=== PATIENT | male | born 1960 ===

== ENCOUNTER 2024-07-12 09:48 | Outpatient (AMB) | payer OTHER, SELFPAY ==
--- NOTE | 2024-07-12 10:08 | MHC.PC.OV ---
Vital Signs 07/12/24 10:28 Height 5 ft 8 in Weight 235 lb 6 oz BMI 35.8 BP 130/70 Blood Pressure Location Rt brachial Position Sitting Respiration 16 Pulse 59 Pulse Source Pulse Oximeter Temp 98 F Temp Source Tympanic Pulse Oximetry (%) 96 Oxygen Delivery Method Room Air Intake Visit Reasons: [employer]-DM/BP Intake Note: establish care Allergies No Known Allergies Allergy (Verified 07/12/24 10:15) Medication List - Last Reconciled 07/12/24 by Gaurav Mckeon MD amlodipine 10 mg PO DAILY aspirin (Adult Aspirin Regimen) 81 mg PO DAILY atorvastatin 40 mg PO DAILY empagliflozin (Jardiance) 10 mg PO DAILY losartan 100 mg PO DAILY metformin 1,000 mg PO DAILY metoprolol succinate ER 100 mg PO DAILY Tobacco use date assessed: 07/12/24 Dental Screening Dental Screen Date: 07/12/24 Did you have a dental visit in the last 12 months?: No Did you have a dental problem in the last 6 months where you did not have access to dental care?: No Was dental information given to patient?: Patient has dentist HPI [employer]-DM/BP HPI Details New Patient? ?? Prior PCP:? Candice miles [place] Last office visit/CPE:? > 1yr Acute issue(s):? BP R hip & knee Concern for heart valve problem. ?? PMHx:? HTN, DM, HLD SurgHx:?None FHx:? Mom: DM Dad: Liver Ca, EtOH. Uncle: Heart disease. SocHx:? Quit cigs 30 yrs ago. EtOH Occassional couple beers. No drugs HPI Comments History of Present Illness Details Documentation assistance for Gaurav Mckeon MD, was provided by Jeremias Rubin,? Microwave Radio Technician on 07/12/2024 at 10:54 AM AGNES. I, Dr. Mckeon, have read, observed, and verified documentation. [facility] Social History (Updated 07/12/24 @ 10:24 by Moreno Mcguire) Housing: House Patient Tobacco Use Status: Never used Tobacco e-Cigarette/Vaping Use: Never Used Use of substances other than those prescribed or required for medical reasons: No service: No Current occupational status: employed Current occupation: maintance Current occupational exposures/hazards: Yes Cognitive needs: No Hearing needs: No Vision needs: Yes Questionnaire PHQ-9 Over the last 2 weeks, how often have you been bothered by any of the following problems? 1. Little interest or pleasure in doing things: not at all 2. Feeling down, depressed, or hopeless: not at all 3. Trouble falling or staying asleep, or sleeping too much: not at all 4. Feeling tired or having little energy: not at all 5. Poor appetite or overeating: not at all 6. Feeling bad about yourself - or that you are a failure or have let yourself or your family down: not at all 7. Trouble concentrating on things, such as reading the newspaper or watching television: not at all 8. Moving or speaking so slowly that other people could have noticed. Or the opposite - being so fidgety or restless that you have been moving around a lot more than usual: not at all 9. Thoughts that you would be better off or of hurting yourself in some way: not at all Total score: 0 Depression Screening Interpretation: Negative Depression Screening Done: Yes 48581 - PHQ-9 Billing: Yes Source: Developed by Drs. Nico Sparrow, Kathryn Chavez, Matt Rodriguez and colleagues, with an educational chelsea from [email or web address]. Thrive Questionnaire Date Thrive assessed: 07/12/24 I am a: Patient What is your living situation today?: I have a steady place to live Within the past 12 months, did the food you bought not last and you didn't have the money to get more?: Never true Within the past 12 months, did you worry whether your food would run out before you got money to buy more?: Never true Do you have trouble paying for medicines?: No Do you have trouble getting transportation to medical appointments?: No Do you have trouble paying your heating and electricity bill?: No Do you have trouble taking care of your child, family member or friend?: No Do you have trouble with day-to-day activities such as bathing, preparing meals, shopping, managing finances, etc.?: No Are you currently unemployed and looking for a job?: No Are you interested in more education?: No Please select the resources that you would like help with: None Currently or been in a relationship where the following occur: No concerns reported THRIVE Score: 0 AUDIT C Alcohol Use Questionnaire (AUDIT-C) 1. How often do you have a drink containing alcohol?: Monthly or less 2. How many drinks containing alcohol do you have on a typical day when you are drinking?: 1 or 2 3. How often do you have six or more drinks on one occasion?: Never Total Score: 1 Score Reviewed/Action Taken: Yes RJ-7 AMB Questionnaire RJ-7 Date RJ - 7 assessed: 07/12/24 Feeling nervous, anxious, or on edge: 0 = Not at all Not being able to stop or control worryin = Not at all Worrying too much about different things: 0 = Not at all Trouble relaxin = Not at all Being so restless that it is hard to sit still: 0 = Not at all Becoming easily annoyed or irritable: 0 = Not at all Feeling afraid as if something awful might happen: 0 = Not at all Total RJ-7 score (0-4 normal; 5-9 mild; 10-14 moderate; 15-21 severe): 0 Source: Developed by Drs. Nico Sparrow, Kathryn Chavez, Matt Rodriguez and colleagues, with an educational chelsea from [email or web address]. RJ-7 Assessment Billing RJ-7 Assessment Tool: RJ-7 Assessment 11293 Review of Systems Const Denies chills, Denies fatigue, Denies fever(s), Denies headache(s) and Denies weakness ENT Denies dizziness and Denies headache(s) Card Denies chest pain, Denies lightheadedness, Denies dyspnea and Denies other (Palpitations) Resp Denies cough, Denies dyspnea, Denies wheezing and Denies other ( shortness of breath) Musc Details: R hip pain Knee pain Denies numbness and Denies tingling Neuro Denies dizziness, Denies headache(s), Denies numbness, Denies tingling, Denies paresthesias and Denies weakness Psych Denies anxiety and Denies depression Endo Denies fatigue Aller/Immun Denies wheezing Physical exam (Primary Care) Vital Signs: Last Vital Signs Temp 98 F 07/12/24 10:28 Pulse 59 07/12/24 10:28 Resp 16 07/12/24 10:28 BP 130/70 07/12/24 10:28 Pulse Ox 96 07/12/24 10:28 Oxygen Delivery Method Room Air 07/12/24 10:28 BMI result Body Mass Index 35.8 Tobacco/Smoking Status: Tobacco use Status Tobacco use date assessed 07/12/24 07/12/24 10:30 Patient Tobacco Use Status Never used Tobacco 07/12/24 10:30 e-Cigarette/Vaping Use Never Used 07/12/24 10:30 PHQ-9: PHQ-9 Score PHQ-9: Total score 0 07/12/24 10:37 Depression Screening Interpretation: Negative Thrive Assessment: Date of Thrive Assessment Date Thrive assessed 07/12/24 07/12/24 10:30 Currently or been in a relationship where the following occur: No concerns reported Const General: no acute distress and well developed Nutritional Appearance: well nourished Orientation/consciousness: patient oriented x3 HENMT Head: Yes normocephalic and Yes atraumatic Eyes General: appearance normal, both eyes and all related structures Pupils: Equal, round and reactive pupils present EOM: EOMs intact bilaterally Resp Effort & Inspection: normal respiratory effort Auscultation: clear to auscultation bilaterally Cardio Rate: regular rate Rhythm: regular rhythm Heart sounds: S1 normal heart sound present, S2 normal heart sound present, no gallops, Murmur heart sound present and no rubs Bruits: carotid bruit (L) Neuro General: patient oriented x3 and gait normal Cranial nerves: Yes Equal, round and reactive pupils present Psych Affect: normal affect Assessment and Plan Assessment & Plan (1) Diabetes: Code(s): E11.9 - Type 2 diabetes mellitus without complications Plan: Patient?is?on?Jardiance?and?metformin Check?A1c (2) Hypertension: Code(s): I10 - Essential (primary) hypertension Plan: Blood?pressure?is?controlled Continue?current?medication?regimen Requesting?notes?from?Cardiology (3) Right hip pain: Code(s): M25.551 - Pain in right hip Plan: Right?posterolateral?hip?pain?radiating?down?side?of?leg?into?knee?and?lower Can?use?OTC?medications?such?as?ibuprofen Will?refer?to?physical?therapy (4) Knee pain: Code(s): M25.569 - Pain in unspecified knee Plan: As?above (5) Hyperlipidemia: Code(s): E78.5 - Hyperlipidemia, unspecified Plan: Patient?is?on?atorvastatin Check?labs (6) Heart murmur: Code(s): R01.1 - Cardiac murmur, unspecified Plan: 02/01?systolic?murmur?heard?over?aortic?and?mitral?regions Patient?has?known?valvular?problem?but?unclear?what?this?is?yet.??I?have?already?ask?patient?to?have?records?forwarded?from?his?manager mobile. His?daughter?is?checking?to?see?who?this?was?and?get?records (7) Left carotid bruit: Code(s): R09.89 - Other specified symptoms and signs involving the circulatory and respiratory systems Plan: Left?carotid?bruit Patient?has?known?valvular?issue?and?systolic?murmur?so?this?may?be?transmitted?sound?but?I?am?not?hearing?it?on?the?right?side?also Checking?carotid?ultrasound (8) Laboratory exam ordered as part of routine general medical examination: Code(s): Z00.00 - Encounter for general adult medical examination without abnormal findings Plan: Check?labs Orders: Orders Comprehensive [place]. Panel Fast Today Z00.00 - Encounter for general adult medical examination without abnormal findings Lipid Panel Today Z00.00 - Encounter for general adult medical examination without abnormal findings UA and rflx microscopic Today Z00.00 - Encounter for general adult medical examination without abnormal findings US carotid duplex BI Today R09.89 - Other specified symptoms and signs involving the circulatory and respiratory systems PT Evaluation and Treatment Today M25.551 - Pain in right hip, M25.569 - Pain in unspecified knee Microalbumin, Random (w Creat) Today I10 - Essential (primary) hypertension Prostate Specific Antigen Scr Today Z12.5 - Encounter for screening for malignant neoplasm of prostate TSH reflex Free T4 Today Z00.00 - Encounter for general adult medical examination without abnormal findings Complete Blood Count Auto Diff Today Z00.00 - Encounter for general adult medical examination without abnormal findings Coding Level of Care Code New Pt Level 3 (43308) Diagnoses Diabetes E11.9 Hypertension I10 Right hip pain M25.551 Knee pain M25.569 Hyperlipidemia E78.5 Heart murmur R01.1 Left carotid bruit R09.89 Laboratory exam ordered as part of routine general medical examination Z00.00 Additional Codes RJ-7 Assessment Billing - RJ-7 Assessment Tool: RJ-7 Assessment 56852 ([id number])
[2024-07-12 10:28] VITALS: BP 130/70; PULSE 59; RESP 16; TEMP 36.6; O2SAT 96; BMI 35.8
== END 2024-07-12 11:16 | disposition home or self-care (01) ==
PROVIDERS: PCP Family Medicine; Visit Provider Family Medicine
DX: E11.9 Type 2 diabetes mellitus without complications (principal); I10 Essential (primary) hypertension; M25.551 Pain in right hip; M25.561 Pain in right knee; E78.5 Hyperlipidemia, unspecified; R01.1 Cardiac murmur, unspecified; R09.89 Other specified symptoms and signs involving the circulatory and respiratory systems
CPT/HCPCS: 99203

== ENCOUNTER 2024-07-17 14:57 | Outpatient (REF) | payer OTHER, SELFPAY ==
--- NOTE | ~2024-07-17 | US_ITS ---
EXAMINATION: US EXTRACRANIAL CAROTID DUPLEX, BILATERAL CLINICAL INFORMATION: hypertension, hyperlipidemia COMPARISON: None available. TECHNIQUE: Real-time ultrasound and Doppler techniques (integrating B-mode 2-D vascular images, Doppler spectral analysis and color-flow Doppler imaging) were utilized to interrogate the extracranial carotid arteries, the vertebral arteries and proximal subclavian arteries bilaterally. The degree of stenosis is determined by criteria similar to NASCET. FINDINGS: Right Side: 1. There is mild atherosclerotic plaque seen in the bifurcation/proximal ICA region. 2. The common carotid artery PSV proximally is 71 cm/s and distally 46 cm/s. 3. The proximal internal carotid artery velocities are 51 cm/s systolic and 14 cm/s diastolic. 4. The proximal external carotid artery PSV is 97 cm/s. 5. The vertebral artery shows antegrade flow. 6. The subclavian artery waveforms are normal. Left Side: 1. There is mild atherosclerotic plaque seen in the bifurcation/proximal ICA region. 2. The common carotid artery PSV proximally is 86 cm/s and distally 58 cm/s. 3. The proximal internal carotid artery velocities are 66 cm/s systolic and 26 cm/s diastolic. 4. The proximal external carotid artery PSV is 107 cm/s. 5. The vertebral artery shows antegrade flow. 6. The subclavian artery waveforms are normal. Prominent left cervical lymph node measuring 2.8 x 0.7 x 1.4 cm. US/US carotid duplex BI IMPRESSION: 1. RIGHT: Minimal, non-hemodynamically significant stenosis of the proximal right internal carotid artery corresponding to a 0-49% stenosis by velocity criteria. 2. LEFT: Minimal, non-hemodynamically significant stenosis of the proximal left internal carotid artery corresponding to a 0-49% stenosis by velocity criteria. Electronically signed by: Jaida Decker MD 07/20/2024 01:02 PM EDT
== END 2024-07-17 14:58 | disposition home or self-care (01) ==
LOC: HO.US 14:57
PROVIDERS: PCP Family Medicine; Visit Provider Family Medicine
DX: R09.89 Other specified symptoms and signs involving the circulatory and respiratory systems (principal)
CPT/HCPCS: 93880

== ENCOUNTER 2024-08-10 08:14 | Outpatient (REF) | payer OTHER, SELFPAY ==
[2024-08-10 11:12] LABS: MANUAL DIFF FLAG NO
[2024-08-10 11:14] LABS: Appearance Urine Clear; Color Urine Yellow; Glucose Urine UA >=1000 mg/dL (Negative); Leukocyte Esterase Urine Negative (Negative); Nitrite Urine Negative (Negative); PH 5.5 (5.0-9.0); Specific Gravity - Urine >= 1.030 (1.005-1.025); UMIC TRIGGER UA YES; Urine Blood Negative (Negative); Urine Ketones Trace mg/dL (Negative); Urine Protein Negative (Neg-Trace)
[2024-08-10 11:21] LABS: Bacteria Urine None Seen (None Seen); Hyaline Casts Urine 0-2 /LPF (0-2); RBC Urine 0-2 /HPF (0-2); Squamous Epithelial Cell Urine 0-2 /HPF (0-2); WBC Urine 0-5 /HPF (0-5)
[2024-08-10 11:26] LABS: Basophils Absolute Auto 0.1 X10*3/uL (0.0-0.2); Basophils Percent Auto 0.9 % (0-2); Eosinophils Absolute Auto 0.3 X10*3/uL (0.0-0.4); Eosinophils Percent Auto 4.8 % (0-4); Hematocrit 45.8 % (42.0-52.0); Hemoglobin 15.5 g/dl (14.0-18.0); Imm Gran Abs Auto 0.01 X10*3/uL (0.00-0.03); Imm Gran Pct Auto 0.2 % (0.0-0.4); Lymphocytes Percent Auto 36.7 % (20-40); Mean Corpuscular HGB Conc 33.8 g/dl (31.0-36.0); Mean Corpuscular Hemoglobin 32.9 pg (27.0-33.0); Mean Corpuscular Volume 97.2 fL (80.0-98.0); Mean Platelet Volume 11.6 fL (9.4-12.4); Monocytes Absolute Auto 0.3 X10*3/uL (0.1-1.2); Monocytes Percent Auto 6.1 % (2-11); Neutrophils Absolute Auto 2.8 x10*3/uL (2.0-8.3); Neutrophils Percent Auto 51.3 % (45-73); Platelet Count 156 X10*3/uL (160-400); Red Blood Count 4.71 X10*6/uL (4.60-5.80); Red Cell Distribution Width 12.7 % (11.0-16.0); White Blood Count 5.4 X10*3/uL (4.8-10.8)
[2024-08-10 11:46] LABS: Creatinine Urine 96.67 mg/dL; Microalbum/Creatinine Ratio Ur 17.5 ug/mg cr (<30)
[2024-08-10 11:56] LABS: Alanine Aminotransferase 22 U/L (0-40); Albumin Level 4.2 g/dL (3.5-5.0); Alkaline Phosphatase 72 U/L (39-117); Anion Gap 12 (12-20); Aspartate Amino Transferase 20 U/L (5-37); Bilirubin Total 0.7 mg/dL (0.0-1.0); Blood Urea Nitrogen 18 mg/dL (9-16); Calcium 9.4 mg/dL (8.4-10.2); Carbon Dioxide 28 mmol/L (22-29); Chloride 103 mmol/L (96-108); Cholesterol 126 mg/dL (<200); Estimated Glomerular Filt Rate > 60; Glucose Fasting 158 mg/dL (60-99); HDL Cholesterol 37 mg/dL (>40); LDL Cholesterol Calculated 66 mg/dL (<100); Potassium 3.9 mmol/L (3.3-5.1); Prostate Specific Antigen Scr 0.14 ng/mL (<0.05-4.0); Sodium 139 mmol/L (135-145); Total Protein 7.3 g/dL (6.5-8.0); Triglycerides 115 mg/dL (<150)
[2024-08-10 12:02] LABS: TSH reflex Free T4 0.83 uIU/mL (0.32-4.0)
[2024-08-10 13:19] LABS: Estimated Average Glucose 177 mg/dL; Hemoglobin A1c % 7.8 % (<6.0)
== END 2024-08-10 08:15 | disposition home or self-care (01) ==
LOC: HO.WFDLDS 08:14
PROVIDERS: Visit Provider Family Medicine
DX: Z00.00 Encounter for general adult medical examination without abnormal findings (principal); I10 Essential (primary) hypertension; Z12.5 Encounter for screening for malignant neoplasm of prostate; R73.01 Impaired fasting glucose; M25.551 Pain in right hip
CPT/HCPCS: 36415; 80053; 80061; 81001; 82043; 82570; 83036; 84153; 84443; 85025

== ENCOUNTER 2024-10-12 07:50 | Outpatient (REF) | payer OTHER, SELFPAY ==
[2024-10-12 11:02] LABS: MANUAL DIFF FLAG NO
[2024-10-12 11:18] LABS: Basophils Absolute Auto 0.1 X10*3/uL (0.0-0.2); Basophils Percent Auto 1.1 % (0-2); Eosinophils Absolute Auto 0.3 X10*3/uL (0.0-0.4); Eosinophils Percent Auto 5.3 % (0-4); Hematocrit 46.5 % (42.0-52.0); Hemoglobin 15.2 g/dl (14.0-18.0); Imm Gran Abs Auto 0.01 X10*3/uL (0.00-0.03); Imm Gran Pct Auto 0.2 % (0.0-0.4); Lymphocytes Absolute Auto 2.1 X10*3/uL (1.2-4.9); Lymphocytes Percent Auto 39.7 % (20-40); Mean Corpuscular HGB Conc 32.7 g/dl (31.0-36.0); Mean Corpuscular Hemoglobin 32.6 pg (27.0-33.0); Mean Corpuscular Volume 99.8 fL (80.0-98.0); Mean Platelet Volume 11.1 fL (9.4-12.4); Monocytes Absolute Auto 0.4 X10*3/uL (0.1-1.2); Monocytes Percent Auto 7.2 % (2-11); Neutrophils Absolute Auto 2.5 x10*3/uL (2.0-8.3); Neutrophils Percent Auto 46.5 % (45-73); Platelet Count 157 X10*3/uL (160-400); Red Blood Count 4.66 X10*6/uL (4.60-5.80); Red Cell Distribution Width 12.7 % (11.0-16.0); White Blood Count 5.3 X10*3/uL (4.8-10.8)
[2024-10-12 11:45] LABS: Alanine Aminotransferase 34 U/L (0-40); Albumin Level 4.1 g/dL (3.5-5.0); Alkaline Phosphatase 85 U/L (39-117); Anion Gap 5 (12-20); Aspartate Amino Transferase 32 U/L (5-37); Bilirubin Total 0.5 mg/dL (0.0-1.0); Blood Urea Nitrogen 17 mg/dL (9-16); Calcium 8.9 mg/dL (8.4-10.2); Carbon Dioxide 32 mmol/L (22-29); Chloride 106 mmol/L (96-108); Cholesterol 129 mg/dL (<200); Estimated Glomerular Filt Rate > 60; Glucose Fasting 140 mg/dL (60-99); HDL Cholesterol 38 mg/dL (>40); LDL Cholesterol Calculated 66 mg/dL (<100); Potassium 4.3 mmol/L (3.3-5.1); Sodium 139 mmol/L (135-145); Total Protein 7.2 g/dL (6.5-8.0); Triglycerides 128 mg/dL (<150)
[2024-10-12 11:53] LABS: Appearance Urine Clear; Color Urine Yellow; Glucose Urine UA >=1000 mg/dL (Negative); Leukocyte Esterase Urine Trace (Negative); Nitrite Urine Negative (Negative); PH 5.5 (5.0-9.0); Specific Gravity - Urine >= 1.030 (1.005-1.025); UMIC TRIGGER UA YES; Urine Blood Negative (Negative); Urine Ketones Negative (Negative); Urine Protein Negative (Neg-Trace)
[2024-10-12 11:55] LABS: Prostate Specific Antigen Scr 0.13 ng/mL (<0.05-4.0)
[2024-10-12 11:59] LABS: Bacteria Urine None Seen (None Seen); Hyaline Casts Urine 0-2 /LPF (0-2); RBC Urine 0-2 /HPF (0-2); Squamous Epithelial Cell Urine 0-2 /HPF (0-2); WBC Urine 0-5 /HPF (0-5)
[2024-10-12 12:03] LABS: TSH reflex Free T4 1.11 uIU/mL (0.32-4.0)
[2024-10-12 12:13] LABS: Creatinine Urine 85.75 mg/dL; Microalbum/Creatinine Ratio Ur 24.4 ug/mg cr (<30)
== END 2024-10-12 07:51 | disposition home or self-care (01) ==
LOC: HO.WFDLDS 07:50
PROVIDERS: Visit Provider Family Medicine
DX: Z00.00 Encounter for general adult medical examination without abnormal findings (principal); I10 Essential (primary) hypertension; Z12.5 Encounter for screening for malignant neoplasm of prostate
CPT/HCPCS: 36415; 80053; 80061; 81001; 82043; 82570; 84153; 84443; 85025

== ENCOUNTER 2024-10-17 15:35 | Outpatient (AMB) | payer OTHER, SELFPAY ==
--- NOTE | 2024-10-17 15:41 | A.OFFPC_ITS ---
Vital Signs 10/17/24 15:46 Height 5 ft 8 in Weight 238 lb BMI 36.2 BP 133/61 Blood Pressure Location Rt brachial Position Sitting Respiration 16 Pulse 62 Pulse Source Pulse Oximeter Temp 97.9 F Temp Source Temporal Artery Scan Pulse Oximetry (%) 95 Oxygen Delivery Method Room Air Intake Visit Reasons: CPE with f/u labs and health maintenance Intake Note: CPE Pallet Rectifier Required: Yes Pallet Rectifier Name: pt refused Allergies No Known Allergies Allergy (Verified 10/17/24 15:43) Tobacco use date assessed: 07/12/24 Dental Screening Dental Screen Date: 07/12/24 HPI CPE with f/u labs and health maintenance HPI Details 64 y/o male presents for a CPE with f/u labs and health maintenance. Labs drawn 10/12/24. Reviewed labs with pt. Elevated fasting glucose of 140. Triglycerides 128. TC 129. LDL 66. HDL low at 38. He is on artovastatin 40mg daily. PSA 0.13. TSH 1.11. Blood pressure today 133/61, 62p. He is on amlodipine 10mg, losartan-HCTZ 100-25mg, metoprolol 100mg daily. US/carotid duplex 07/17/24 BI shows: IMPRESSION: 1. RIGHT: Minimal, non-hemodynamically s ignificant stenosis of the proximal right internal carotid artery corresponding to a 0-49% stenosis by velocity criteria. 2. LEFT: Minimal, non-hemodynamically si gnificant stenosis of the proximal left internal carotid artery corresponding to a 0-49% stenosis by velocity criteria. Electronically signed by: Jaida Decker MD 07/20/2024 01:02 PM EDT [facility] Social History (Updated 07/12/24 @ 10:24 by Moreno Mcguire [facility]) Housing: House Patient Tobacco Use Status: Never used Tobacco e-Cigarette/Vaping Use: Never Used service: No Current occupational status: employed Current occupation: maintance Current occupational exposures/hazards: Yes Cognitive needs: No Hearing needs: No Vision needs: Yes Questionnaire PHQ-9 Over the last 2 weeks, how often have you been bothered by any of the following problems? 1. Little interest or pleasure in doing things: not at all 2. Feeling down, depressed, or hopeless: not at all 3. Trouble falling or staying asleep, or sleeping too much: not at all 4. Feeling tired or having little energy: not at all 5. Poor appetite or overeating: not at all 6. Feeling bad about yourself - or that you are a failure or have let yourself or your family down: not at all 7. Trouble concentrating on things, such as reading the newspaper or watching television: not at all 8. Moving or speaking so slowly that other people could have noticed. Or the opposite - being so fidgety or restless that you have been moving around a lot more than usual: not at all 9. Thoughts that you would be better off or of hurting yourself in some way: not at all Total score: 0 Depression Screening Interpretation: Negative Depression Screening Done: Yes 88834 - PHQ-9 Billing: Yes Source: Developed by Drs. Nico Sparrow, Kathryn Chavez, Matt Rodriguez and colleagues, with an educational chelsea from [employer]. Thrive Questionnaire Date Thrive assessed: 10/17/24 I am a: Patient What is your living situation today?: I have a steady place to live Within the past 12 months, did the food you bought not last and you didn't have the money to get more?: Never true Within the past 12 months, did you worry whether your food would run out before you got money to buy more?: Never true Do you have trouble paying for medicines?: No Do you have trouble getting transportation to medical appointments?: No Do you have trouble paying your heating and electricity bill?: No Do you have trouble taking care of your child, family member or friend?: No Do you have trouble with day-to-day activities such as bathing, preparing meals, shopping, managing finances, etc.?: No Are you currently unemployed and looking for a job?: No Are you interested in more education?: No Please select the resources that you would like help with: None Currently or been in a relationship where the following occur: No concerns reported THRIVE Score: 0 AUDIT C Alcohol Use Questionnaire (AUDIT-C) 1. How often do you have a drink containing alcohol?: Monthly or less 2. How many drinks containing alcohol do you have on a typical day when you are drinking?: 3 or 4 3. How often do you have six or more drinks on one occasion?: Never Total Score: 2 RJ-7 AMB Questionnaire RJ-7 Date RJ - 7 assessed: 10/17/24 Feeling nervous, anxious, or on edge: 0 = Not at all Not being able to stop or control worryin = Not at all Worrying too much about different things: 0 = Not at all Trouble relaxin = Not at all Being so restless that it is hard to sit still: 0 = Not at all Becoming easily annoyed or irritable: 0 = Not at all Feeling afraid as if something awful might happen: 0 = Not at all Total RJ-7 score (0-4 normal; 5-9 mild; 10-14 moderate; 15-21 severe): 0 Source: Developed by Drs. Nico Sparrow, Kathryn Chavez, Matt Rodriguez and colleagues, with an educational chelsea from [employer]. RJ-7 Assessment Billing RJ-7 Assessment Tool: RJ-7 Assessment 32150 Review of Systems Const Denies chills, Denies fatigue, Denies fever(s), Denies headache(s) and Denies weakness Eyes Denies change in vision ENT Denies dizziness, Denies headache(s), Denies hearing loss, Denies nasal congestion, Denies sinus pain, Denies sinus pressure and Denies sore throat Card Denies chest pain, Denies lightheadedness, Denies dyspnea and Denies other (palpitations) Resp Denies cough, Denies dyspnea and Denies wheezing GI Denies abdominal pain, Denies melena, Denies hematochezia, Denies change in bowel habits, Denies dyspepsia and Denies nausea Denies hematuria and Denies dysuria Musc Denies abnormal gait, Denies myalgias, Denies arthralgias, Denies numbness and Denies tingling Skin/Breast Denies rash, Denies unusual bruising and Denies wounds Neuro Denies abnormal gait, Denies dizziness, Denies headache(s), Denies memory loss, Denies numbness, Denies Sensory deficit (Neuro), Denies tingling and Denies weakness Psych Denies anxiety, Denies depression and Denies memory loss Endo Denies cold intolerance, Denies fatigue, Denies heat intolerance, Denies polydipsia and Denies polyuria Malvin/Lymph Denies easy bleeding and Denies easy bruising Aller/Immun Denies wheezing Physical exam (Primary Care) Vital Signs: Last Vital Signs Temp 97.9 F 10/17/24 15:46 Pulse 62 10/17/24 15:46 Resp 16 10/17/24 15:46 BP 133/61 10/17/24 15:46 Pulse Ox 95 10/17/24 15:46 Oxygen Delivery Method Room Air 10/17/24 15:46 BMI result Body Mass Index 36.2 Tobacco/Smoking Status: Tobacco use Status Tobacco use date assessed 07/12/24 10/17/24 15:41 Patient Tobacco Use Status Never used Tobacco 10/17/24 15:41 e-Cigarette/Vaping Use Never Used 10/17/24 15:41 PHQ-9: PHQ-9 Score PHQ-9: Total score 0 10/17/24 16:02 Depression Screening Interpretation: Negative Thrive Assessment: Date of Thrive Assessment Date Thrive assessed 10/17/24 10/17/24 15:52 Currently or been in a relationship where the following occur: No concerns reported Const General: no acute distress, well developed, alert and awake Nutritional Appearance: well nourished Orientation/consciousness: patient oriented x3 HENMT Head: Yes normocephalic and Yes atraumatic Ears: hearing grossly normal bilaterally and TM's normal bilaterally General nose exam: Normal external nose present and Normal nares present Mouth: Normal oral and palatal mucosa present and moist mucous membranes Teeth and gingiva: dentition normal Throat: Yes posterior oropharynx normal Eyes General: appearance normal, both eyes and all related structures Pupils: Equal, round and reactive pupils present and Pupil accommodation reflex normal EOM: EOMs intact bilaterally Neck Neck: Yes normal visual inspection, Yes no lymphadenopathy and Yes trachea midline Thyroid: Thyroid normal Carotids: no bruits Lymphatic: no lymphadenopathy noted Chest Chest palpation & inspection: normal inspection of the chest Resp Effort & Inspection: normal respiratory effort Auscultation: clear to auscultation bilaterally Cardio Rate: regular rate Rhythm: regular rhythm Heart sounds: S1 normal heart sound present, S2 normal heart sound present, no gallops, Murmur heart sound present and no rubs Bruits: no abdominal aortic bruits and no carotid bruits GI Palpation (GI): No Abdominal aortic bruit present, Soft to palpation, nontender, No hepatosplenomegaly present and No Rebound tenderness present Auscultation: normal bowel sounds General: Yes no CVA tenderness Back/Spine/Pelvis Back: no CVA tenderness Cervical Spine: cervical ROM normal and No Cervical spine tenderness Thoracic/Lumbar Spine: thoraco-lumbar ROM normal, No pain with thoraco-lumbar ROM, No thoracic spinal tenderness and No lumbar spinal tenderness Skin Lesions: no lesions Rashes: no rashes Trauma: no lacerations or abrasions Wounds: no wounds Nails: normal Neuro General: patient oriented x3 Cranial nerves: Yes Equal, round and reactive pupils present Cognition (Neuro): normal cognition Gait exam (Neuro): Normal gait present Motor exam (neuro): 5/5 motor strength present throughout Sensory Exam: No Sensory deficit (Neuro) Deep tendon reflexes (DTR's): Right patellar reflex intensity grade: 2+ and Left patellar reflex intensity grade: 2+ Extrem General: Yes normal to inspection and No edema Psych Appearance: grossly normal Affect: normal affect Attitude: cooperative Thought process: Normal thought process present Coding Level of Care Code Est Pt Prev Care 40-64y(58829) Diagnoses Adult general medical exam Z00.00 Hyperlipidemia E78.5 Hypertension I10 Left carotid bruit R09.89 Heart murmur R01.1 Diabetes E11.9 Screening for colon cancer Z12.11 Screening for prostate cancer Z12.5 Additional Codes RJ-7 Assessment Billing - RJ-7 Assessment Tool: RJ-7 Assessment 70725 ([id number]) PHQ-9 - 95839 - PHQ-9 Billing: Yes ([id number]) Assessment & Plan Assessment & Plan (1) Adult general medical exam: Code(s): Z00.00 - Encounter for general adult medical examination without abnormal findings Category: Medical Plan: 64-year-old?male?presents?with?his?daughter?for?complete?physical?exam Encouraged?healthy?diet?with?active?lifestyle?and?plenty?of?exercise (2) Hyperlipidemia: Code(s): E78.5 - Hyperlipidemia, unspecified Category: Medical Plan: He?is?on?atorvastatin.??Lipids?are?controlled?except?HDL?is?low Encouraged?increased?exercise?and?diet?high?in?Wilber?3?fatty?acids (3) Hypertension: Code(s): I10 - Essential (primary) hypertension Category: Medical Plan: Blood?pressure?is?controlled.??Goal?is?less?than?140/90 Continue?current?medications Patient?went?to?the?ED?recently?for?from?with?his?blood?pressure?and he?was?not?on?1?of?medications. Now?taking?medication?as?prescribed. I?do?not?have?report?for?that?hospital?visit.??Will?request?this (4) Left carotid bruit: Code(s): R09.89 - Other specified symptoms and signs involving the circulatory and respiratory systems Category: Medical Plan: Had?obtained?a?carotid?duplex?due?to?auscultated?bruit?however?this?showed?no?he modynamically?significant?abnormalities. Likely?transmitted?heart?sounds-see?below (5) Heart murmur: Code(s): R01.1 - Cardiac murmur, unspecified Category: Medical Plan: Patient?has?a?loud?systolic murmur. I?do?not?have?his?prior?records?regarding?cardiology?visits?or?workup. Check?echocardiogram.??Discussed?with?his?daughter?that?he?may?referral?to?Cardi ology.??We?can?follow-up?on?this?in?1?month.??Patient?is?asymptomatic?today. (6) Diabetes: Code(s): E11.9 - Type 2 diabetes mellitus without complications Category: Medical Plan: He?is?taking?his?diabetes?medication?regimen?as?prescribed Last?A1c?was?7.8%?in?July.??Too?soon?to?recheck Will?have?him?follow-up?in?a?month?adjust?medications?as?needed (7) Screening for colon cancer: Code(s): Z12.11 - Encounter for screening for malignant neoplasm of colon Category: Medical Plan: Patient?had?a?colonoscopy?about?5?years?ago?in?[place] I?do?not?have?report Will?check?a?Cologuard?test.??If?positive?will?refer?to?Gastroenterology (8) Screening for prostate cancer: Code(s): Z12.5 - Encounter for screening for malignant neoplasm of prostate Category: Medical Plan: PSA?was?within?normal?range Will?continue?annual?screening Orders: Orders CA echo transthoracic complete Today I10 - Essential (primary) hypertension, R01.1 - Cardiac murmur, unspecified Influenza [id number] Immunization Today Z23 - Encounter for immunization Referrals Cologuard Test Z12.11 - Encounter for screening for malignant neoplasm of colon, Z12.12 - Encounter for screening for malignant neoplasm of rectum Medications: New Fluarix Triv [id number] (PF) (flu vacc [id number] 6mos up(PF)) 0.5 mL IM ONCE 0.5 mL 0RF NS Z23 - Encounter for immunization
[2024-10-17 15:46] VITALS: BP 133/61; PULSE 62; RESP 16; TEMP 36.6; O2SAT 95; BMI 36.2
== END 2024-10-17 16:31 | disposition home or self-care (01) ==
PROVIDERS: PCP Family Medicine; Visit Provider Family Medicine
DX: Z00.00 Encounter for general adult medical examination without abnormal findings (principal); E78.5 Hyperlipidemia, unspecified; E11.69 Type 2 diabetes mellitus with other specified complication; I10 Essential (primary) hypertension; R09.89 Other specified symptoms and signs involving the circulatory and respiratory systems; R01.1 Cardiac murmur, unspecified; Z12.11 Encounter for screening for malignant neoplasm of colon; Z12.5 Encounter for screening for malignant neoplasm of prostate

== ENCOUNTER → 2024-10-17 15:35 | Outpatient (BNVA) | payer OTHER, SELFPAY | PROVIDERS: PCP Family Medicine; Visit Provider Family Medicine | DX: Z00.00 Encounter for general adult medical examination without abnormal findings (principal); Z23 Encounter for immunization; E78.5 Hyperlipidemia, unspecified; I10 Essential (primary) hypertension; R09.89 Other specified symptoms and signs involving the circulatory and respiratory systems; R01.1 Cardiac murmur, unspecified; E11.9 Type 2 diabetes mellitus without complications | CPT/HCPCS: 90471; 90656; 96127; 99396 ==

== ENCOUNTER → 2024-11-08 14:55 | Outpatient (REF) | payer OTHER, SELFPAY ==
--- NOTE | 2024-11-08 14:58 | CA_ITS ---
Transthoracic Echocardiogram Patient (Last, First, Middle): Robert Quiroz, Gender: Male Date of : 1960 Age: 64 Procedure Date: 11/08/2024 Procedure Type: Transthoracic Echocardiogram Location: OP Height: 172.72 cm Weight: 107.96 kg BSA: 2.20 m2 Heart Rate: 75 bpm BP: 133 / 61 mmHg Parimutuel Clerk: SB Referring MD: Gaurav Mckeon MD Vp Research: Chito Sanchez MD Symptoms: R01.1 - Cardiac murmur, unspecified Study Quality: Adequate ECG Rhythm: Sinus Conclusions: - 1. Normal LV ejection fraction of 60 65% with elevated filling pressures 2. Moderate aortic stenosis 3. Normal RV systolic pressure 4. Mildly dilated ascending aorta 3.7 cm 5. No gross pericardial effusion Findings Procedure Information The quality of the study was technically difficult. The study quality is limited by patients body habitus and lung artifact. Left Ventricle Normal left ventricular size and systolic function. There is mildly increased left ventricular wall thickness. The visually estimated ejection fraction is between 60-65%. Spectral Doppler is indicative of an impaired relaxation filling pattern. Elevated filling pressures. E/E prime ratio is >15, consistent with elevated filling pressures. Right Ventricle Normal right ventricular cavity size and systolic function. Atria The left atrium is mildly dilated. There is no evidence of interatrial shunt. The right atrium is normal in size. Aortic Valve There is moderate calcification of the aortic valve. There is moderate thickening of the aortic valve. There is moderate aortic valve stenosis. The peak aortic velocity is 3.33 m/s with a calculated peak gradient of 44 mmHg. The mean gradient is 27 mmHg. The aortic valve area is 1.29 cm2. There is mild aortic valve regurgitation. Mitral Valve Normal mitral valve structure and function. There is trace mitral valve regurgitation. There is no mitral valve stenosis. Pulmonic Valve The pulmonic valve is likely normal. Tricuspid Valve Normal tricuspid valve structure. There is trace tricuspid valve regurgitation. The right ventricular systolic pressure is normal. The right ventricular systolic pressure is 21 mmHg. Normal right atrial pressure. There is no evidence of pulmonary hypertension. Great Vessels The pulmonary artery was not well visualized. There is mild dilatation of the ascending aorta measuring 3.70 cm. Venous The inferior vena cava is normal in size and collapses greater than 50% with inspiration. Pericardium/Pleural There is no evidence of pericardial effusion. Prior Study Comparison No prior study available for comparison. Measurements 2D Linear Measurements IVSd: 1.26 0.6-0.9/0.6-1.0 cm LVIDd: 5.43 3.9-5.3/4.2-5.9 cm LVIDd Index: 2.47 2.4-3.2/2.2-3.1 cm/m2 LVIDs: 3.62 2.0-3.6 cm LVPWd: 1.07 0.7-1.1 cm LA Diam: 4.20 2.7-3.8/3.0-4.0 cm LAIDs Index: 1.91 1.5-2.3 cm/m2 LV Mass: 319.47 67-162/88-224 g LV Mass Index: 145.21 43-95/49-115 g/m2 LVOT Diam: 2.30 3.0+(-)1.3 cm 2D Systolic Function EF 4C: 56.00 >55% Mitral Valve MV Pk E: 0.99 MV PK A: 0.94 MV Decel Time: 218.00 E/A: 1.00 E'Lateral: 6.42 E'Medial: 5.55 E/E' Med: 17.80 E/E' Lat: 15.40 PHT: 64.00 MVA PHT: 3.44 Decel [place]: 4.55 Aortic Valve AoV Pk Jose: 3.33 AoV Mn Jose: 2.49 AoV VTI: 0.76 AoV Pk Grad: 44.00 Aov Mn Grad: 27.00 YARI Cont.VTI: 1.29 AI Pk Jose: 3.72 AI [place]: 2.25 LVOT LVOT Pk Jose: 1.00 LVOT Mn Jose: 0.69 LVOT VTI: 0.24 LVOT Pk Grad: 4.00 LVOT Mn Grad: 2.00 LVOT Diam: 2.30 LVOT Area: 4.15 Diastolic Function MV Pk E: 0.99 MV Pk A: 0.94 E/A: 1.00 E'Medial: 5.55 E/E' Med: 17.80 E' Laterial: 6.42 E/E' Lat: 15.40 Right Ventricle TAPSE (mm): 24.40 TVS' Jose: 13.50 Tricuspid Valve TR Pk Jose: 2.10 TR Pk Grad: 18.00 RA Press: 3.00 RVSP: 21.00 Great Vessels Aorta Sinus of Valsalva: 3.70 2.0-3.5 cm Ao Asc: 3.70 2.1-3.4 cm Pulmonary Veins Pulm Vein S/D 1.40 Pulmonary Valve PV Pk Jose: 0.98 Peak PV Grad: 4.00 Updated in Other Vendor System with Status of Final Chito Sanchez MD electronically signed on 11/09/2024 4:29:16 PM with status of Final
== END ==
LOC: HO.CARD 14:55
PROVIDERS: PCP Family Medicine; Visit Provider Family Medicine
DX: R01.1 Cardiac murmur, unspecified (principal); I10 Essential (primary) hypertension
CPT/HCPCS: 93306

== ENCOUNTER → 2024-11-08 14:58 | Outpatient (BNV) | payer OTHER, SELFPAY | PROVIDERS: PCP Family Medicine; Visit Provider Internal Medicine Cardiovascular Disease | DX: I35.2 Nonrheumatic aortic (valve) stenosis with insufficiency (principal); I35.8 Other nonrheumatic aortic valve disorders | CPT/HCPCS: 93306 ==

== ENCOUNTER 2024-11-20 10:30 | Outpatient (AMB) | payer OTHER, SELFPAY ==
--- NOTE | 2024-11-20 10:50 | MHC.PC.OV ---
Vital Signs 11/20/24 10:52 Height 5 ft 8 in Weight 239 lb BMI 36.3 BP 114/60 Blood Pressure Location Rt brachial Position Sitting Respiration 16 Pulse 67 Pulse Source Pulse Oximeter Temp 98.2 F Temp Source Oral Pulse Oximetry (%) 96 Oxygen Delivery Method Room Air Intake Visit Reasons: f/u diabetes, echocardiogram Allergies No Known Allergies Allergy (Verified 11/20/24 10:56) Medication List - Last Reconciled 11/20/24 by Gaurav Mckeon MD amlodipine 10 mg PO DAILY aspirin (Adult Aspirin Regimen) 81 mg PO DAILY atorvastatin 40 mg PO DAILY empagliflozin (Jardiance) 10 mg PO DAILY losartan-hydrochlorothiazide 100-25 mg 1 tab PO DAILY metformin 1,000 mg PO DAILY metoprolol succinate ER 100 mg PO DAILY Tobacco use date assessed: 07/12/24 Dental Screening Dental Screen Date: 07/12/24 HPI f/u diabetes, echocardiogram HPI Details 64 y/o male presents to f/u echocardiogram for cardiac murmur. Also f/u diabetes. Echocardiogram 11/08/24 shows: - 1. Normal LV ejection fraction of 60 65% with elevated filling pressures 2. Moderate aortic stenosis 3. Normal RV systolic pressure 4. Mildly dilated ascending aorta 3.7 cm 5. No gross pericardial effusion Denies any breathing difficulties. Blood pressure today 114/60, 67p. He is on losartan-HCTZ 100-25mg, metoprolol 100mg daily. A1c today 7.8%. ----- Patient?presents?for?preoperative?clearance?prior?to??Teeth Extractions Procedure: Teeth Extractions Date: TBD Surgeon: Roque Bullokc Anesthesia: General Cardiac?Hx: History?of?aortic?stenosis. No?history?of?coronary?artery?disease. 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 [facility] Social History (Updated 07/12/24 @ 10:24 by Moreno Mcguire [facility] Housing: House Patient Tobacco Use Status: Never used Tobacco e-Cigarette/Vaping Use: Never Used service: No Current occupational status: employed Current occupation: maintance Current occupational exposures/hazards: Yes Cognitive needs: No Hearing needs: No Vision needs: Yes Questionnaire Thrive Questionnaire Date Thrive assessed: 10/17/24 I am a: Patient What is your living situation today?: I have a steady place to live Within the past 12 months, did the food you bought not last and you didn't have the money to get more?: Never true Within the past 12 months, did you worry whether your food would run out before you got money to buy more?: Never true Do you have trouble paying for medicines?: No Do you have trouble getting transportation to medical appointments?: No Do you have trouble paying your heating and electricity bill?: No Do you have trouble taking care of your child, family member or friend?: No Do you have trouble with day-to-day activities such as bathing, preparing meals, shopping, managing finances, etc.?: No Are you currently unemployed and looking for a job?: No Are you interested in more education?: No Please select the resources that you would like help with: None Currently or been in a relationship where the following occur: No concerns reported THRIVE Score: 0 RJ-7 AMB Questionnaire RJ-7 Date RJ - 7 assessed: 10/17/24 Source: Developed by Drs. Nico Sparrow, Kathryn Chavez, Matt Rodriguez and colleagues, with an educational chelsea from [employer]. Physical exam (Primary Care) Vital Signs: Last Vital Signs Temp 98.2 F 11/20/24 10:52 Pulse 67 11/20/24 10:52 Resp 16 11/20/24 10:52 BP 114/60 11/20/24 10:52 Pulse Ox 96 11/20/24 10:52 Oxygen Delivery Method Room Air 11/20/24 10:52 BMI result Body Mass Index 36.3 Tobacco/Smoking Status: Tobacco use Status Tobacco use date assessed 07/12/24 11/20/24 10:51 Patient Tobacco Use Status Never used Tobacco 11/20/24 10:51 e-Cigarette/Vaping Use Never Used 11/20/24 10:51 Thrive Assessment: Date of Thrive Assessment Date Thrive assessed 10/17/24 11/20/24 10:51 Currently or been in a relationship where the following occur: No concerns reported Cardio Heart sounds: Murmur heart sound present (02/01 systolic murmur heard over aortic region) Coding Level of Care Code Est Pt Level 4 (20181) Diagnoses Pre-op exam Z01.818 Aortic stenosis I35.0 Heart murmur R01.1 Diabetes E11.9 Hypertension I10 Assessment & Plan Assessment & Plan (1) Pre-op exam: Code(s): Z01.818 - Encounter for other preprocedural examination Category: Medical Plan: 64-year-old?male?presents?for?preoperative?clearance?prior?to?teeth?extractions. Patient?has?a?history?of?aortic?stenosis. Recent?echocardiogram?shows?mild?aortic?stenosis,?3.7?cm, ?normal ejection?fraction?with?mild?left?ventricular?hypertrophy. EKG?shows?mild?sinus?bradycardia?with?first-degree?block?and?meets?criteria?for?LVH.??Nonspecific?T-wave?abnormality. No?other?ST-T-wave?changes. Cardiac?exam?unchanged?from?prior;?3/6?aortic?murmur?secondary?to?aortic?stenosis. Blood?pressure?is?controlled?goal?less than ?130/80. Pulmonary?exam?is?normal/clear?to?auscultation?bilaterally. No complications?to?prior?surgeries?anesthesia No?clotting?disorders Good?functional?reserve Low?intermediate?risk?patient?for?low?risk?procedure. no?contraindications?to?proceeding?with?proposed?procedure.? (2) Aortic stenosis: Code(s): I35.0 - Nonrheumatic aortic (valve) stenosis Category: Medical Plan: 3/6?systolic?murmur?and?echocardiogram?shows?mild?aortic?stenosis?3.7?cm Patient?appears?hemodynamically?stable EKG: ?Sinus?bradycardia?with?first-degree?AV?block, normal?axis, left?ventricular?hypertrophy, nonspecific?T-wave?change/inversion?V6. Refer?to?Cardiology (3) Heart murmur: Code(s): R01.1 - Cardiac murmur, unspecified Category: Medical Plan: 3/6?systolic?murmur?heard?over aortic?region - likely?secondary?to?aortic?stenosis. Also?evidence?of?LVH?on?EKG & Echo. Referred?to?cardiology (4) Diabetes: Code(s): E11.9 - Type 2 diabetes mellitus without complications Category: Medical Plan: A1c: ?7.8%.??Goal?is?less?than?7.0%. ?Suboptimal?control I?am?increasing?his?metformin?from?1000?mg?daily?to?750?mg?b.i.d. Continue?Jardiance He?will?follow-up?with?me?in?a?few?months (5) Hypertension: Code(s): I10 - Essential (primary) hypertension Category: Medical Plan: Blood?pressure?is?controlled.??Goal?is?less?than?130/80 Continue?current?medications Orders: Referrals Cardiology Referral I35.0 - Nonrheumatic aortic (valve) stenosis Medications: Changed From metformin 1,000 mg PO DAILY 30 tabs 2RF To metformin 1,000 mg PO DAILY 90 days 90 tabs 2RF From empagliflozin (Jardiance) 10 mg PO DAILY 30 tabs 2RF To empagliflozin (Jardiance) 10 mg PO DAILY 90 days 90 tabs 3RF From atorvastatin 40 mg PO DAILY 30 tabs 2RF To atorvastatin 40 mg PO DAILY 90 days 90 tabs 3RF From aspirin (Adult Aspirin Regimen) 81 mg PO DAILY 30 tabs 2RF To aspirin (Adult Aspirin Regimen) 81 mg PO DAILY 90 days 90 tabs 4RF From losartan-hydrochlorothiazide 100-25 mg 1 tab PO DAILY 90 tabs 0RF To losartan-hydrochlorothiazide 100-25 mg 1 tab PO DAILY 90 days 90 tabs 3RF From amlodipine 10 mg PO DAILY 30 tabs 2RF To amlodipine 10 mg PO DAILY 90 days 90 tabs 3RF From metoprolol succinate ER 100 mg PO DAILY 30 tabs 2RF To metoprolol succinate ER 100 mg PO DAILY 90 days 90 tabs 3RF From metformin 1,000 mg PO DAILY 90 days 90 tabs 2RF To metformin 750 mg (1.5 x 500 mg) PO DAILY 90 days 135 tabs 2RF
[2024-11-20 10:52] VITALS: BP 114/60; PULSE 67; RESP 16; TEMP 36.8; O2SAT 96; BMI 36.3
== END 2024-11-20 11:24 | disposition home or self-care (01) ==
PROVIDERS: PCP Family Medicine; Visit Provider Family Medicine
DX: Z01.818 Encounter for other preprocedural examination (principal); I35.0 Nonrheumatic aortic (valve) stenosis; R01.1 Cardiac murmur, unspecified; E11.9 Type 2 diabetes mellitus without complications; I10 Essential (primary) hypertension

== ENCOUNTER → 2024-11-20 10:30 | Outpatient (BNVA) | payer OTHER, SELFPAY | PROVIDERS: PCP Family Medicine; Visit Provider Family Medicine | DX: Z01.818 Encounter for other preprocedural examination (principal); I35.0 Nonrheumatic aortic (valve) stenosis; R01.1 Cardiac murmur, unspecified; E11.9 Type 2 diabetes mellitus without complications; I10 Essential (primary) hypertension | CPT/HCPCS: 83036; 99212 ==

== ENCOUNTER 2025-02-19 15:50 | Outpatient (AMB) | payer OTHER, SELFPAY ==
--- NOTE | 2025-02-19 16:06 | A.OFFPC_ITS ---
Vital Signs 02/19/25 16:21 Height 5 ft 8 in Weight 237 lb 8 oz BMI 36.1 BP 110/60 Blood Pressure Location Rt brachial Position Sitting Respiration 16 Pulse 95 Pulse Source Pulse Oximeter Temp 98.1 F Temp Source Oral Pulse Oximetry (%) 95 Oxygen Delivery Method Room Air Intake Visit Reasons: f/u diabetes Intake Note: dm follow up Allergies No Known Allergies Allergy (Verified 02/19/25 16:20) Medication List - Last Reconciled 02/19/25 by Gaurav Mckeon MD amlodipine 10 mg PO DAILY 90 days aspirin (Adult Aspirin Regimen) 81 mg PO DAILY 90 days atorvastatin 40 mg PO DAILY 90 days empagliflozin 25 mg PO DAILY 90 days losartan-hydrochlorothiazide 100-25 mg 1 tab PO DAILY 90 days metformin 1000mg (2tabs) in AM and 500mg (1 tab) in PM orally daily; 90 days metoprolol succinate ER 100 mg PO DAILY 90 days Tobacco use date assessed: 07/12/24 Dental Screening Dental Screen Date: 07/12/24 HPI f/u diabetes HPI Details 64 y/o male presents to f/u diabetes. A1c today 02/19/25 7.2%. He is on metformin 750mg daily, Jardiance 10mg daily. He notes he has been taking metformin 1500 mg daily. Blood pressure today 110/60, 95p. He is on metoprolol 100mg, losartan-HCTZ 100-25mg daily, amlodipine 10mg daily. Had referred him to a cell reliner for a heart murmur. [facility] Social History (Updated 07/12/24 @ 10:24 by Moreno Mcguire [facility]) Housing: House Patient Tobacco Use Status: Never used Tobacco e-Cigarette/Vaping Use: Never Used service: No Current occupational status: employed Current occupation: maintance Current occupational exposures/hazards: Yes Cognitive needs: No Hearing needs: No Vision needs: Yes Questionnaire Thrive Questionnaire Date Thrive assessed: 10/17/24 I am a: Patient What is your living situation today?: I have a steady place to live Within the past 12 months, did the food you bought not last and you didn't have the money to get more?: Never true Within the past 12 months, did you worry whether your food would run out before you got money to buy more?: Never true Do you have trouble paying for medicines?: No Do you have trouble getting transportation to medical appointments?: No Do you have trouble paying your heating and electricity bill?: No Do you have trouble taking care of your child, family member or friend?: No Do you have trouble with day-to-day activities such as bathing, preparing meals, shopping, managing finances, etc.?: No Are you currently unemployed and looking for a job?: No Are you interested in more education?: No Please select the resources that you would like help with: None Currently or been in a relationship where the following occur: No concerns reported THRIVE Score: 0 RJ-7 AMB Questionnaire RJ-7 Date RJ - 7 assessed: 10/17/24 Source: Developed by Drs. Nico Sparrow, Kathryn Chavez, Matt Rodriguez and colleagues, with an educational chelsea from [employer]. Physical exam (Primary Care) Vital Signs: Last Vital Signs Temp 98.1 F 02/19/25 16:21 Pulse 95 02/19/25 16:21 Resp 16 02/19/25 16:21 BP 110/60 02/19/25 16:21 Pulse Ox 95 02/19/25 16:21 Oxygen Delivery Method Room Air 02/19/25 16:21 BMI result Body Mass Index 36.1 Tobacco/Smoking Status: Tobacco use Status Tobacco use date assessed 07/12/24 02/19/25 16:07 Patient Tobacco Use Status Never used Tobacco 02/19/25 16:07 e-Cigarette/Vaping Use Never Used 02/19/25 16:07 Thrive Assessment: Date of Thrive Assessment Date Thrive assessed 10/17/24 02/19/25 16:07 Currently or been in a relationship where the following occur: No concerns reported Results AMB Hemoglobin A1c AMB Hemoglobin A1c 7.2 % Last Edit by YANET Ford on 02/19/25 16:33 Results Reviewed Results Reviewed: Laboratory Last Values Hgb A1c (Clinic) 7.2 % (4.0-6.0) H 02/19/25 16:32 Coding Level of Care Code Est Pt Level 4 (71974) Diagnoses Diabetes E11.9 Hypertension I10 Heart murmur R01.1 Assessment & Plan Assessment & Plan (1) Diabetes: Code(s): E11.9 - Type 2 diabetes mellitus without complications Category: Medical Plan: A1c?is?improving?from?7.8%?to?7.2%?but?still?not?yet?to?goal?of Less?than?7.0%. Had?increased?metformin?at?last?visit. Will?increase Jardiance?from?10?mg?daily?to?25?mg?daily (2) Hypertension: Code(s): I10 - Essential (primary) hypertension Category: Medical Plan: Blood?pressure?is?well?controlled?and?at?goal?of?less?than?130/80 Continue?current?medication (3) Heart murmur: Code(s): R01.1 - Cardiac murmur, unspecified Category: Medical Plan: Had?referred?patient?to?Cardiology?but?he?has?not?been?scheduled?yet. Gave?patient?the?phone?number?for?Cardiology. Orders: Orders AMB Hemoglobin A1c Today E11.9 - Type 2 diabetes mellitus without complications Medications: Changed From empagliflozin (Jardiance) 10 mg PO DAILY 90 days 90 tabs 3RF To empagliflozin 25 mg PO DAILY 90 days 90 tabs 3RF From metformin 750 mg (1.5 x 500 mg) PO DAILY 90 days 135 tabs 2RF To metformin 1000mg (2tabs) in AM and 500mg (1 tab) in PM orally daily; 90 days 135 tabs 2RF Refilled losartan-hydrochlorothiazide 100-25 mg 1 tab PO DAILY 90 days 90 tabs 3RF metformin 1000mg (2tabs) in AM and 500mg (1 tab) in PM orally daily; 90 days 270 tabs 2RF metoprolol succinate ER 100 mg PO DAILY 90 days 90 tabs 3RF
[2025-02-19 16:21] VITALS: BP 110/60; PULSE 95; RESP 16; TEMP 36.7; O2SAT 95; BMI 36.1
--- OUTSIDE RECORDS SUMMARY | 2025-02-19 18:34 | XMS_ITS | Clinical Summary ---
Author Organization [facility] Address [address] [facility] [address] [place] [address] Care Team Providers Care Behavior Specialist Name Role Phone Unavailable Primary Care Provider Unavailabl e Allergies No known active allergies Medications amLODIPine (Norvasc) 10 MG tablet Take 10 mg by mouth. 02/25/2024 Active ammonium lactate (Amlactin) 12 % cream Apply topically. 03/25/2023 Active aspirin 81 MG EC tablet Take 81 mg by mouth. 11/05/2022 Active atorvastatin (Lipitor) 40 MG tablet Take 40 mg by mouth. 02/25/2024 Active Jardiance 10 MG Take 1 tablet by mouth. 02/25/2024 Active losartan-hydroCH LOROthiazide (Hyzaar) 100-25 MG tablet Take 1 tablet by mouth Once per day. Active metFORMIN (Glucophage) 1000 MG tablet Take 1,000 mg by mouth. 02/25/2024 Active metoprolol succinate XL (Toprol-XL) 100 MG 24 hr tablet Take 100 mg by mouth. 02/25/2024 Active Active Problems Problem Noted Date Diagnosed Date Dental root caries 12/29/2024 DM2 (diabetes mellitus, type 2) 11/15/2024 Hyperlipidemia, unspecified 11/15/2024 Moderate aortic valve stenosis 11/15/2024 Severe obesity (BMI 35.0-39.9) with comorbidity 11/15/2024 Encounters Date Type Department Care Team Description 12/29/2024 8:00 AM EST Office Visit [facility] [address] [place] [address] Christopher Nicole DDS Dental root caries (Primary Dx) from Last 3 Months Social History Tobacco Use Types Packs/Day Years Used Date Smoking Tobacco: Never Smokeless Tobacco: Never Tobacco Cessation:Counseling Given: Not Answered Alcohol Use Standard Drinks/Week Comments Never 0 (1 standard drink = 0.6 oz pur e alcohol) Sex and Gender Information Value Date Recorded Sex Assigned at Male 11/15/2024 11:14 AM EST Legal Sex Male 11:09 AM EST Gender Identity Male 11/15/2024 11:14 AM EST Sexual Orientation Straight 11/15/2024 11 :14 AM EST Last Filed Vital Signs Vital Sign Reading Time Taken Comments Blood Pressure 134/72 12/29/2024 8:05 AM EST Pulse 60 11/15/2024 11:43 AM EST Temperature - - Respiratory Rate - - Oxygen Saturation - - Inhaled Oxygen Concentration - - Weight - - Height - - Body Mass Index - - Plan of Treatment Upcoming Encounters Date Type Department Care Team (Late st Contact Info) Description 03/27/2025 2:00 PM EDT Office Visit [facility] ADULT [facility] [address] [place] [address] Leela Brooks Health Maintenance Due Date Last Done Comments CT Colonography 1961 Colonoscopy 1961 Colorectal Cancer Screening 1961 Dental Oral Exam 1961 Dental Prophylaxis 1961 Dental X-Ray: Full Mouth 1961 Depression Screening 1961 Diabetes: Hemoglobin A1C 1961 FIT DNA/Cologuard 1961 FIT 1961 FOBT 1961 HIV Screening 1961 Lipid Panel 1961 SDOH Screening 1961 Sigmoidoscopy 1961 Diabetes: Foot Exam 1971 Eye Exam 1971 Alcohol/Substance Use Screening 1973 Hepatitis C Screening 1979 DTaP/Tdap/Td Vaccines (1 - Tdap) 1980 Diabetes: Urine Protein Screening 1980 Pneumococcal Vaccine: 50+ Years (1 of 2 - PCV) 1980 Zoster Vaccines (1 of 2) 2011 RSV Patients and Patients Aged 60 years or older (1 - Risk 60-74 years 1-dose series) 2021 COVID-19 Vaccine ( season) 2024 12/10/2022, 05/06/2022, 10/21/2021, Additional history exists Dental X-Ray: Bitewings 11/16/2025 11/15/2024 Tobacco Screening 12/29/2025 12/29/2024 Influenza Vaccine Completed 10/17/2024, 12/10/2022 HIB Vaccines Aged Out No longer eligi ble based on patient's age to complete this topic HPV Vaccines Aged Out No longer eligi ble based on patient's age to complete this topic Hepatitis A Vaccines Aged Out No long er eligible based on patient's age to complete this topic Hepatitis B Vaccines Aged Out No long er eligible based on patient's age to complete this topic IPV Vaccines Aged Out No longer eligi ble based on patient's age to complete this topic Meningococcal Vaccine Aged Out No radha mattie eligible based on patient's age to complete this topic RSV under 20 months Aged Out No longe r eligible based on patient's age to complete this topic Rotavirus Vaccines Aged Out No longer eligible based on patient's age to complete this topic Procedures Procedure Name Priority Date/Time Associated Diagnosis Comments CASE PRESENTATION, DETAILED AND EXTENSIVE TREATMENT PLANNING Routine 12/29/2024 8:00 AM EST 5 EXTRACTION, ERUPTED TOOTH OR EXPOSED ROOT (ELEVATION/FORCEPS REMOVAL) Routine 12/29/2024 8:00 AM EST BITEWING - SINGLE RADIOGRAPHIC IMAGE Routine 11/15/2024 11:30 AM EST from Last 3 Months or Most Recently Relevant to Health Maintenance Insurance DENTAL - [facility] PARTIAL (MEDICAID)
== END 2025-02-19 16:44 | disposition home or self-care (01) ==
LOC: HO.HMCFM 15:51
PROVIDERS: PCP Family Medicine; Visit Provider Family Medicine
DX: E11.9 Type 2 diabetes mellitus without complications (principal); I10 Essential (primary) hypertension; R01.1 Cardiac murmur, unspecified

== ENCOUNTER → 2025-02-19 15:50 | Outpatient (BNVA) | payer OTHER, SELFPAY | PROVIDERS: PCP Family Medicine; Visit Provider Family Medicine | DX: E11.9 Type 2 diabetes mellitus without complications (principal); I10 Essential (primary) hypertension; R01.1 Cardiac murmur, unspecified | CPT/HCPCS: 83036; 99212 ==

== ENCOUNTER 2025-05-23 15:49 | Outpatient (AMB) | payer OTHER, SELFPAY ==
--- NOTE | 2025-05-23 16:18 | A.OFFPC_ITS ---
Vital Signs 05/23/25 16:22 Height 5 ft 8 in Weight 238 lb 6 oz BMI 36.2 BP 120/60 Blood Pressure Location Rt brachial Position Sitting Respiration 16 Pulse 70 Pulse Source Pulse Oximeter Temp 98.0 F Temp Source Oral Pulse Oximetry (%) 98 Oxygen Delivery Method Room Air Intake Visit Reasons: f/u diabetes, hypertension Intake Note: patient is scheduled for dm follow up and htn Habilitation Specialist Required: No Allergies No Known Allergies Allergy (Verified 05/23/25 16:20) Medication List - Last Reconciled 05/23/25 by Gaurav Mckeon MD amlodipine 10 mg PO DAILY 90 days aspirin (Adult Aspirin Regimen) 81 mg PO DAILY 90 days atorvastatin 40 mg PO DAILY 90 days empagliflozin 25 mg PO DAILY 90 days losartan-hydrochlorothiazide 100-25 mg 1 tab PO DAILY 90 days metformin 1000mg (2tabs) in AM and 500mg (1 tab) in PM orally daily; 90 days metoprolol succinate ER 100 mg PO DAILY 90 days Tobacco use date assessed: 07/12/24 Dental Screening Dental Screen Date: 07/12/24 HPI f/u diabetes, hypertension HPI Details 64 y/o male presents to f/u HTN, diabete s. Last A1c in January 7.2%. Increased Jardiance to 25mg daily. A1c today 7.7%. BP today 120/60, 70p. He is on amlodipine 10mg, losartan-HCTZ 100-25mg daily, metoprolol 100mg daily. [facility] Social History (Updated 07/12/24 @ 10:24 by Moreno Mcguire [facility]) Housing: House Patient Tobacco Use Status: Never used Tobacco e-Cigarette/Vaping Use: Never Used service: No Current occupational status: employed Current occupation: maintance Current occupational exposures/hazards: Yes Cognitive needs: No Hearing needs: No Vision needs: Yes Questionnaire PHQ-9 Over the last 2 weeks, how often have you been bothered by any of the following problems? 1. Little interest or pleasure in doing things: not at all 2. Feeling down, depressed, or hopeless: not at all 3. Trouble falling or staying asleep, or sleeping too much: not at all 4. Feeling tired or having little energy: not at all 5. Poor appetite or overeating: not at all 6. Feeling bad about yourself - or that you are a failure or have let yourself or your family down: not at all 7. Trouble concentrating on things, such as reading the newspaper or watching television: not at all 8. Moving or speaking so slowly that other people could have noticed. Or the opposite - being so fidgety or restless that you have been moving around a lot more than usual: not at all 9. Thoughts that you would be better off or of hurting yourself in some way: not at all Total score: 0 Source: Developed by Drs. Nico Sparrow, Kathryn Chavez, Matt Rodriguez and colleagues, with an educational chelsea from [employer]. Thrive Questionnaire Date Thrive assessed: 10/17/24 I am a: Patient What is your living situation today?: I have a steady place to live Within the past 12 months, did the food you bought not last and you didn't have the money to get more?: Never true Within the past 12 months, did you worry whether your food would run out before you got money to buy more?: Never true Do you have trouble paying for medicines?: No Do you have trouble getting transportation to medical appointments?: No Do you have trouble paying your heating and electricity bill?: No Do you have trouble taking care of your child, family member or friend?: No Do you have trouble with day-to-day activities such as bathing, preparing meals, shopping, managing finances, etc.?: No Are you currently unemployed and looking for a job?: No Are you interested in more education?: No Please select the resources that you would like help with: None Currently or been in a relationship where the following occur: No concerns reported THRIVE Score: 0 AUDIT C Alcohol Use Questionnaire (AUDIT-C) 1. How often do you have a drink containing alcohol?: 2-4 times a month 2. How many drinks containing alcohol do you have on a typical day when you are drinking?: 3 or 4 3. How often do you have six or more drinks on one occasion?: Monthly Total Score: 5 RJ-7 AMB Questionnaire RJ-7 Date RJ - 7 assessed: 10/17/24 Feeling nervous, anxious, or on edge: 0 = Not at all Not being able to stop or control worryin = Not at all Worrying too much about different things: 0 = Not at all Trouble relaxin = Not at all Being so restless that it is hard to sit still: 0 = Not at all Becoming easily annoyed or irritable: 0 = Not at all Feeling afraid as if something awful might happen: 0 = Not at all Total RJ-7 score (0-4 normal; 5-9 mild; 10-14 moderate; 15-21 severe): 0 Source: Developed by Drs. Nico Sparrow, Kathryn Chavez, Matt Rodriguez and colleagues, with an educational chelsea from [employer]. Review of Systems Const Denies chills, Denies fatigue, Denies fever(s), Denies headache(s) and Denies weakness ENT Denies dizziness and Denies headache(s) Card Denies dyspnea Resp Denies cough, Denies dyspnea, Denies wheezing and Denies other (shortness of breath) Musc Denies numbness and Denies tingling Neuro Denies dizziness, Denies headache(s), Denies numbness, Denies tingling and Denies weakness Psych Denies anxiety and Denies depression Endo Denies fatigue Aller/Immun Denies wheezing Physical exam (Primary Care) Vital Signs: Last Vital Signs Temp 98.0 F 05/23/25 16:22 Pulse 70 05/23/25 16:22 Resp 16 05/23/25 16:22 BP 120/60 05/23/25 16:22 Pulse Ox 98 05/23/25 16:22 Oxygen Delivery Method Room Air 05/23/25 16:22 BMI result Body Mass Index 36.2 Tobacco/Smoking Status: Tobacco use Status Tobacco use date assessed 07/12/24 05/23/25 16:27 Patient Tobacco Use Status Never used Tobacco 05/23/25 16:27 e-Cigarette/Vaping Use Never Used 05/23/25 16:27 PHQ-9: PHQ-9 Score PHQ-9: Total score 0 05/23/25 16:44 Thrive Assessment: Date of Thrive Assessment Date Thrive assessed 10/17/24 05/23/25 16:27 Currently or been in a relationship where the following occur: No concerns reported Const General: well developed; No acute distress Nutritional Appearance: well nourished Orientation/consciousness: patient oriented x3 HENMT Head: Yes normocephalic and Yes atraumatic Eyes General: appearance normal, both eyes and all related structures Pupils: Equal, round and reactive pupils present EOM: EOMs intact bilaterally Resp Effort & Inspection: normal respiratory effort Auscultation: clear to auscultation bilaterally Cardio Rate: regular rate Rhythm: regular rhythm Heart sounds: S1 normal heart sound present, S2 normal heart sound present, no gallops, no murmurs and no rubs Neuro General: patient oriented x3 and gait normal Cranial nerves: Yes Equal, round and reactive pupils present Psych Affect: normal affect Results AMB Hemoglobin A1c AMB Hemoglobin A1c 7.7 % Last Edit by YANET Ford on 05/23/25 16:54 Coding Level of Care Code Est Pt Level 3 (19677) Diagnoses Diabetes E11.9 Hypertension I10 Assessment & Plan Assessment & Plan (1) Diabetes: Code(s): E11.9 - Type 2 diabetes mellitus without complications Category: Medical Plan: A1c?had?improved?at?last?visit?but?now?climbing?again?and?at?7.7%.??G oal?is?less?than?7.0%. He?is?taking?his?medications?as?prescribed Will?add?glipizide?ER?2.5?mg?daily Continue?metformin?and?Jardiance?as?prescribed Encouraged?diabetic?diet?and?weight?loss Will?continue?to?follow?closely (2) Hypertension: Code(s): I10 - Essential (primary) hypertension Category: Medical Plan: Blood?pressure?is?well?controlled.??Goal?is?less?than?130/80 Continue?current?medications History?of?aortic?stenosis?and?patient?has?an ?appointment?with?cardiology?in?July. Orders: Orders AMB Hemoglobin A1c Today E11.9 - Type 2 diabetes mellitus without complications Medications: New glipizide ER 2.5 mg PO QAM 90 tabs 3RF 90 days
[2025-05-23 16:22] VITALS: BP 120/60; PULSE 70; RESP 16; TEMP 36.7; O2SAT 98; BMI 36.2
--- OUTSIDE RECORDS SUMMARY | 2025-05-23 18:32 | XMS_ITS | Patient Health Record ---
Author Organization [facility] n Address [address] [place] [address] Care Team Providers Care Qa Consultant Name Role Phone Dr. Vel Samuel Primary Care Provider Reason For Referral No Information Medications Medication SIG (Take, Route, Frequency, Duration) Notes Start Date End Date Status metFORMIN HCl 1000 MG Tablet 1 tablet with meals Orally daily; Duration: 30 day(s) 07/05/2017 Activ e Metoprolol Tartrate 50 mg Tablet 1 tablet Orally bid; Duration: 30 day(s) 07/05/2017 Active Enalapril Maleate 20 mg Tablet 1 tablet Orally Twice a day; Duration: 30 day(s) 07/05/2017 Active Social History Social History Drugs/Alcohol: Social Info Question Answer Notes Drugs Have you used drugs other than those for medical reasons in the past 12 months? No Tobacco Use: Social Info Question Answer Notes Tobacco use other than smoking: Are you an other tobacco user? No Additional Details Category Social Info Options Details Migrated Social History: Migrated Social History Alcohol Tobacco Problems Problem Type SNOMED Code ICD Code Onset Dates Problem Status W/U Status Risk Notes Problem Hyperglycemia due to type 2 diabetes mellitus (048341057147731) Type 2 diabetes mellitus with hyperglycemia (E11.65) Active confirmed Problem Essential hypertension (26295094) Essential (primary) hypertension (I10) Active confirmed Problem Bronchitis (25055267) Bronchitis (J40) Active confirmed Problem Lipid screening (710218443) Lipid screening (Z13.220) Active confirmed Problem Diabetes mellitus screening (776187415) Diabetes mellitus screening (Z13.1) Active confirmed Problem Sexually transmitted infectious disease (1351760) Encounter for screening for infections with predominantly sexual mode of transmission (Z11.3) Active confirmed Problem Colon cancer screening (761868704) Colon cancer screening (Z12.11) Active confirmed Problem Endocrine/metabol ic screening (528971985) Encounter for screening for endocrine disorder (Z13.29) Active confirmed Problem Screening for malignant neoplasm of prostate (938994618) Prostate cancer screening (Z12.5) Active confirmed Problem Physical examination, complete (48994137) Adult general medical examination (Z00.00) Active confirmed Plan Of Treatment Pending Test Test Name Order Date Chest X-ray PA and lateral 07/05/2017 HDL Cholesterol 01/02/2014 URI 01/02/2014 URI 07/12/2014 URI 07/05/2017 TSH 01/02/2014 -*CBC W/AUTO DIFF 12/06/2013 -*CBC W/AUTO DIFF 08/28/2014 -*CBC W/AUTO DIFF 08/20/2014 -*CBC W/AUTO DIFF 01/02/2014 -*CBC W/AUTO DIFF 07/12/2014 -*CBC W/AUTO DIFF 07/05/2017 Hgb A1c 07/05/2017 Hgb A1c 01/02/2014 Hgb A1c 12/12/2013 LIPID PANEL 12/06/2013 LIPID PANEL 07/05/2017 -CMP 07/05/2017 -CMP 12/06/2013 -CMP 01/02/2014 Glucose Fasting 12/12/2013 PSA, total 01/02/2014 ALBUMIN URINE MICROALBUMIN QUANTITATIVE (24HRS) 07/05/2017 OCCULT BLOOD, SIN DIETA 07/05/2017 PSA SCREENING (TOTAL) 07/05/2017 FREE T3 07/05/2017 TSH 07/05/2017 TRIIODOTHYRO9 (T3 REVERSE) 07/05/2017 SYPHILIS TEST QUANT 07/05/2017 HIV-1 AG EIA 07/05/2017 HIV-2 AG EIA 07/05/2017 CHLAMYDIA TRACHOMATIS, AMPLIFIED PROBE 0 07/05/2017 IADNA NEISSERIA GONORRHOEAE AMP PRB 05/2017 Insurance Providers Payer Name Payer Address Payer Phone Subscriber Number Group Number Insured Name Patient Relationship to Insured Coverage Start Date Coverage End Date MCS [address] [place], [place] [address] [phone] [id number] FENG CRISTINA Self - patient is the insured 6 Medical (General) History Medical History History ICD Code Hypertension
== END 2025-05-23 16:59 | disposition home or self-care (01) ==
LOC: HO.HMCFM 15:50
PROVIDERS: PCP Family Medicine; Visit Provider Family Medicine
DX: E11.9 Type 2 diabetes mellitus without complications (principal); I10 Essential (primary) hypertension

== ENCOUNTER → 2025-05-23 15:49 | Outpatient (BNVA) | payer OTHER, SELFPAY | PROVIDERS: PCP Family Medicine; Visit Provider Family Medicine | DX: I10 Essential (primary) hypertension (principal); E11.9 Type 2 diabetes mellitus without complications; Z79.899 Other long term (current) drug therapy | CPT/HCPCS: 83036; 99212 ==

== ENCOUNTER 2025-08-27 15:38 | Outpatient (AMB) | payer OTHER, SELFPAY ==
[2025-08-27 16:14] VITALS: BP 140/88; PULSE 74; O2SAT 95; BMI 37.4
--- NOTE | 2025-08-27 16:14 | A.OFFPC_ITS ---
Vital Signs 08/27/25 16:14 Height 5 ft 8 in Weight 246 lb 4 oz BMI 37.4 BP 140/88 H Blood Pressure Location Rt brachial Position Sitting Pulse 74 Pulse Source Pulse Oximeter Pulse Oximetry (%) 95 Oxygen Delivery Method Room Air Intake Visit Reasons: f/u diabetes, HTN Accompanied by: Daughter Allergies No Known Allergies Allergy (Verified 08/27/25 16:16) Medication List - Last Reconciled 08/27/25 by Gaurav Mckeon MD amlodipine 10 mg PO DAILY 90 days aspirin (Adult Aspirin Regimen) 81 mg PO DAILY 90 days atorvastatin 40 mg PO DAILY 90 days empagliflozin 25 mg PO DAILY 90 days glipizide ER 5 mg PO QAM 90 days hydrochlorothiazide 50 mg PO QAM 90 days losartan 100 mg PO DAILY 90 days metformin 1000mg (2tabs) in AM and 500mg (1 tab) in PM orally daily; 90 days metoprolol succinate ER 100 mg PO DAILY 90 days Tobacco use date assessed: 08/27/25 Fall risk assessment: No Falls in past year Last assessed Fall Risk: 08/27/25 Dental Screening Dental Screen Date: 08/27/25 Did you have a dental visit in the last 12 months?: Yes Did you have a dental problem in the last 6 months where you did not have access to dental care?: No Was dental information given to patient?: Patient has dentist HPI f/u diabetes, HTN HPI Details 65 y/o male presents to f/u diabetes, HT N. Blood pressure today 140/88, 74p. He is on losartan-HCTZ 100-25mg daily, metoprolol 100mg, amlodipine 10mg daily. He is on empagliflozin 25mg, metformin, glipizide 2.5mg for his diabetes. A1c today 7.7%. He reports memory changes. [facility] Surgical History (Updated 08/27/25 @ 16:20 by Rosa Elena Osborne CMA) No pertinent past surgical history Social History Housing: House Patient Tobacco Use Status: Never used Tobacco e-Cigarette/Vaping Use: Never Used service: No Current occupational status: employed Current occupation: maintance Current occupational exposures/hazards: Yes Cognitive needs: No Hearing needs: No Vision needs: Yes Questionnaire PHQ-9 Over the last 2 weeks, how often have you been bothered by any of the following problems? 1. Little interest or pleasure in doing things: not at all 2. Feeling down, depressed, or hopeless: not at all 3. Trouble falling or staying asleep, or sleeping too much: not at all 4. Feeling tired or having little energy: not at all 5. Poor appetite or overeating: not at all 6. Feeling bad about yourself - or that you are a failure or have let yourself or your family down: not at all 7. Trouble concentrating on things, such as reading the newspaper or watching television: not at all 8. Moving or speaking so slowly that other people could have noticed. Or the opposite - being so fidgety or restless that you have been moving around a lot more than usual: not at all 9. Thoughts that you would be better off or of hurting yourself in some way: not at all Total score: 0 Source: Developed by Drs. Nico Sparrow, Kathryn Chavez, Matt Rodriguez and colleagues, with an educational chelsea from [email or web address]. Thrive Questionnaire Date Thrive assessed: 05/23/25 I am a: Patient What is your living situation today?: I have a steady place to live Within the past 12 months, did the food you bought not last and you didn't have the money to get more?: Never true Within the past 12 months, did you worry whether your food would run out before you got money to buy more?: Never true Do you have trouble paying for medicines?: No Do you have trouble getting transportation to medical appointments?: No Do you have trouble paying your heating and electricity bill?: No Do you have trouble taking care of your child, family member or friend?: No Do you have trouble with day-to-day activities such as bathing, preparing meals, shopping, managing finances, etc.?: No Are you currently unemployed and looking for a job?: No Are you interested in more education?: No Please select the resources that you would like help with: None Currently or been in a relationship where the following occur: No concerns reported THRIVE Score: 0 AUDIT C Alcohol Use Questionnaire (AUDIT-C) 1. How often do you have a drink containing alcohol?: 2-4 times a month 2. How many drinks containing alcohol do you have on a typical day when you are drinking?: 3 or 4 3. How often do you have six or more drinks on one occasion?: Less than monthly Total Score: 4 RJ-7 AMB Questionnaire RJ-7 Date RJ - 7 assessed: 05/23/25 Feeling nervous, anxious, or on edge: 0 = Not at all Not being able to stop or control worryin = Not at all Worrying too much about different things: 0 = Not at all Trouble relaxin = Not at all Being so restless that it is hard to sit still: 0 = Not at all Becoming easily annoyed or irritable: 0 = Not at all Feeling afraid as if something awful might happen: 0 = Not at all Total RJ-7 score (0-4 normal; 5-9 mild; 10-14 moderate; 15-21 severe): 0 Source: Developed by Drs. Nico Sparrow, Kathryn Chavez, Matt Rodriguez and colleagues, with an educational chelsea from [email or web address]. Review of Systems Const Denies chills, Denies fatigue, Denies fever(s), Denies headache(s) and Denies weakness ENT Denies dizziness and Denies headache(s) Card Denies dyspnea Resp Denies cough, Denies dyspnea, Denies wheezing and Denies other (shortness of breath) Musc Denies numbness and Denies tingling Neuro Denies dizziness, Denies headache(s), Denies numbness, Denies tingling and Denies weakness Psych Denies anxiety and Denies depression Endo Denies fatigue Aller/Immun Denies wheezing Physical exam (Primary Care) Vital Signs: Last Vital Signs Pulse 74 08/27/25 16:14 BP 140/88 H 08/27/25 16:14 Pulse Ox 95 08/27/25 16:14 Oxygen Delivery Method Room Air 08/27/25 16:14 BMI result Body Mass Index 37.4 Tobacco/Smoking Status: Tobacco use Status Tobacco use date assessed 08/27/25 08/27/25 16:20 Patient Tobacco Use Status Never used Tobacco 08/27/25 16:20 e-Cigarette/Vaping Use Never Used 08/27/25 16:20 PHQ-9: PHQ-9 Score PHQ-9: Total score 0 08/27/25 16:50 Thrive Assessment: Date of Thrive Assessment Date Thrive assessed 05/23/25 08/27/25 16:20 Currently or been in a relationship where the following occur: No concerns reported Const General: well developed; No acute distress Nutritional Appearance: well nourished Orientation/consciousness: patient oriented x3 HENMT Head: Yes normocephalic and Yes atraumatic Eyes General: appearance normal, both eyes and all related structures Pupils: Equal, round and reactive pupils present EOM: EOMs intact bilaterally Resp Effort & Inspection: normal respiratory effort Neuro General: patient oriented x3 and gait normal Cranial nerves: Yes Equal, round and reactive pupils present Psych Affect: normal affect Results AMB Hemoglobin A1c AMB Hemoglobin A1c 7.7 % Last Edit by Rosa Elena Osborne CMA on 08/27/25 16:32 Results Reviewed Results Reviewed: Laboratory Last Values Hgb A1c (Clinic) 7.7 % (4.0-6.0) H 08/27/25 16:20 Coding Level of Care Code Est Pt Level 4 (01323) Diagnoses Diabetes E11.9 Hypertension I10 Memory changes R41.3 Assessment & Plan Assessment & Plan (1) Diabetes: Code(s): E11.9 - Type 2 diabetes mellitus without complications Category: Medical Plan: A1c 7.7%. Suboptimal control. Goal is less than 7% Increasing glipizide and he will continue metformin and empagliflozin as prescribed Referred to the nurse navigator for diabetic teaching Up-to-date with eye exam in December (2) Hypertension: Code(s): I10 - Essential (primary) hypertension Category: Medical Plan: Blood pressure is a little too high. He will continue metoprolol and amlodipine as prescribed. Discontinue combo pill for losartan-hydrochlorothiazide He will start losartan 100 mg tablet daily He will start hydrochlorothiazide 50 mg tablet daily. * increasing losartan from 25 mg daily to 50 mg daily (3) Memory changes: Code(s): R41.3 - Other amnesia Category: Medical Plan: Family member notes memory problems Referred to [facility] memory clinic Orders: Orders AMB Hemoglobin A1c Today Z13.9 - Encounter for screening, unspecified Referrals Nurse Navigator Referral E11.9 - Type 2 diabetes mellitus without complications Neuropsychiatry Referral R41.3 - Other amnesia Medications: New losartan 100 mg PO DAILY 90 tabs 3RF 90 days hydrochlorothiazide 50 mg PO QAM 90 tabs 3RF 90 days Changed From glipizide ER 2.5 mg PO QAM 90 days 90 tabs 3RF To glipizide ER 5 mg PO QAM 90 tabs 3RF 90 days Discontinued losartan-hydrochlorothiazide 100-25 mg Discontinued Reason: Doctor's Order 1 tab PO DAILY 90 days 90 tabs 3RF
--- OUTSIDE RECORDS SUMMARY | 2025-08-27 17:41 | XMS_ITS | Patient Health Record ---
Author Organization [facility] Address [address] [facility] [place] [address] Care Team Providers Care Clinical Trial Data Manager Name Role Phone Dr. Vel Samuel Primary [...] Hyperglycemia due to type 2 diabetes mellitus (660720976350307) Type 2 diabetes mellitus with hyperglycemia (E11.65) Active confirmed Problem Essential hypertension (86476201) Essential (primary) hypertension (I10) Active confirmed Problem Bronchitis (95015410) Bronchitis (J40) Active confirmed Problem Lipid screening (531593699) Lipid screening (Z13.220) Active confirmed Problem Diabetes mellitus screening (404063936) Diabetes mellitus screening (Z13.1) Active confirmed Problem Sexually transmitted infectious disease (2287019) Encounter for screening for infections with predominantly sexual mode of transmission (Z11.3) Active confirmed Problem Colon cancer screening (832013809) Colon cancer screening (Z12.11) Active confirmed Problem Endocrine/metabol ic screening (520405323) Encounter for screening for endocrine disorder (Z13.29) Active confirmed Problem Screening for malignant neoplasm of prostate (646631130) Prostate cancer screening (Z12.5) Active confirmed Problem Physical examination, complete (91877360) Adult general medical examination (Z00.00) Active confirmed Plan Of Treatment Pending Test Test Name Order Date Chest X-ray PA and lateral 07/05/2017 HDL Cholesterol 01/02/2014 URI 01/02/2014 URI 07/12/2014 URI 07/05/2017 TSH 01/02/2014 -*CBC W/AUTO DIFF 07/12/2014 -*CBC W/AUTO DIFF 08/20/2014 -*CBC W/AUTO DIFF 08/28/2014 -*CBC W/AUTO DIFF 12/06/2013 -*CBC W/AUTO DIFF 01/02/2014 -*CBC W/AUTO DIFF 07/05/2017 Hgb A1c 07/05/2017 Hgb A1c 01/02/2014 Hgb A1c 12/12/2013 LIPID PANEL 12/06/2013 LIPID PANEL 07/05/2017 -CMP 07/05/2017 -CMP 01/02/2014 -CMP 12/06/2013 Glucose Fasting 12/12/2013 PSA, total 01/02/2014 ALBUMIN [...] Date Coverage End Date MCS [address] [place], [place] [address] [id number] FENG CRISTINA Self - patient is the insured 6 Medical (General) History Medical History History ICD Code Hypertension
--- OUTSIDE RECORDS SUMMARY | 2025-08-27 17:42 | XMS_ITS | Clinical Summary ---
Author Organization [employer] Address [address] [place] [address] Care Team Providers Care Paint Tester Name Role Phone Unavailable Primary Care Provider [...] 11/15/2024 Severe obesity (BMI 35.0-39.9) with comorbidity (CMS/HCC) 11/15/2024 Social History Tobacco Use Types Packs/Day Years [...] Sign Reading Time Taken Comments Blood Pressure 130/84 03/29/2025 10:07 AM EDT Pulse 60 11/15/2024 11:43 AM EST Temperature - - Respiratory Rate - - Oxygen Saturation - - Inhaled Oxygen Concentration - - Weight - - Height - - Body Mass Index - - Plan of Treatment Upcoming Encounters Date Type Department Care Team (Late st Contact Info) Description 10/10/2025 3:00 PM EST Office Visit [facility] ADULT D[facility]AL [address] [place] [address] Caroline Barth Health Maintenance Due Date Last Done Comments CT Colonography 1961 Colonoscopy 1961 Colorectal Cancer Screening 1961 Depression Screening 1961 Diabetes: Hemoglobin A1C 1961 FIT DNA/Cologuard 1961 FIT 1961 FOBT 1961 HIV Screening 1961 Lipid Panel 1961 SDOH Screening 1961 Sigmoidoscopy 1961 Disability Screening 1961 Diabetes: Foot Exam 1971 Eye Exam [...] 1-dose series) 2021 COVID-19 Vaccine ( season) 2025 12/10/2022, 05/06/2022, 10/21/2021, Additional history exists Influenza Vaccine (#1) 2025 , 12/10/2022, 12/10/2022 Dental Oral Exam 09/30/2025 03/29/2025 Dental Prophylaxis 09/30/2025 03/29/2025 Tobacco Screening 03/29/2026 03/29/2025 Dental X-Ray: Bitewings 03/30/2026 03/29/2025, 11/15 Dental X-Ray: Full Mouth 03/30/2028 03/29/2025 HIB Vaccines Aged Out No longer eligi [...] patient's age to complete this topic Meningococcal B Vaccine Aged Out No l onger eligible based on patient's age to complete [...] Procedure Name Priority Date/Time Associated Diagnosis Comments PROPHYLAXIS - ADULT Routine 03/29/2025 1 0:00 AM EDT INTRAORAL - COMPLETE SERIES OF RADIOGRAPHIC IMAGES Routine 03/29/2025 10:00 AM EDT PERIODIC ORAL EVALUATION - ESTABLISHED PATIENT Routine 03/29/2025 10:00 AM EDT from Last 3 Months or Most Recently Relevant to Health Maintenance Insurance DENTAL - HSN PARTIAL (MEDICAID)
== END 2025-08-27 16:58 | disposition home or self-care (01) ==
LOC: HO.HMCFM 15:39
PROVIDERS: PCP Family Medicine; Visit Provider Family Medicine
DX: E11.9 Type 2 diabetes mellitus without complications (principal); I10 Essential (primary) hypertension; R41.3 Other amnesia; Z13.9 Encounter for screening, unspecified

== ENCOUNTER → 2025-08-27 15:38 | Outpatient (BNVA) | payer OTHER, SELFPAY | PROVIDERS: PCP Family Medicine; Visit Provider Family Medicine | DX: I10 Essential (primary) hypertension (principal); E11.9 Type 2 diabetes mellitus without complications; R41.3 Other amnesia | CPT/HCPCS: 83036; 99212 ==

== ENCOUNTER 2025-10-08 14:30 | Outpatient (AMB) | payer OTHER, SELFPAY ==
--- NOTE | 2025-10-08 14:33 | A.OFFVIS_ITS ---
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 Public Transportation Inspector Required: Yes Public Transportation Inspector Language: Wheel Fitter Services: Public Transportation Inspector Offered & Declined Public Transportation Inspector Name: daughter/bruneian Accompanied by: Daughter Allergies No Known Allergies Allergy (Verified 10/08/25 14:37) Medication List - Last Reconciled 10/08/25 by Roger Brown MD amlodipine 10 mg PO DAILY 90 days aspirin (Adult Aspirin Regimen) 81 mg PO DAILY 90 days atorvastatin 40 mg PO DAILY 90 days empagliflozin 25 mg PO DAILY 90 days glipizide ER 5 mg PO QAM 90 days hydrochlorothiazide 50 mg PO QAM 90 days losartan 100 mg PO DAILY 90 days metformin 1000mg (2tabs) in AM and 500mg (1 tab) in PM orally daily; 90 days metoprolol succinate ER 100 mg PO DAILY 90 days HPI Comments Details: [age] year gentleman who is referred to us for aortic stenosis. He had echocardiography performed in October 2024 showing moderate aortic valve stenosis. His aortic valve area was 1.29 cm2, mean gradient 27 mm Hg, peak gradient 44 mm Hg and peak velocity of 3.33 m/sec. He also had elevated filling pressures with mild left ventricular hypertrophy. He works in maintenance. He has history of hypertension and diabetes. His blood pressure is well controlled. He is on atorvastatin 40 mg daily. In his day-to-day life he has no chest discomfort shortness of breath. He has never had dizziness or syncope. [facility] Surgical History No pertinent past surgical history Family History Brother High blood pressure Heart attack Social History Housing: House Patient Tobacco Use Status: Never used Tobacco e-Cigarette/Vaping Use: Never Used service: No Current occupational status: employed Current occupation: maintance Current occupational exposures/hazards: Yes Cognitive needs: No Hearing needs: No Vision needs: Yes Review of Systems Const Denies chills, Denies fatigue, Denies fever(s), Denies frequent falls, Denies weakness, Denies weight gain and Denies weight loss ENT Denies dizziness Card Denies chest pain, Denies leg edema, Denies lightheadedness, Denies palpitations, Denies dyspnea, Denies dyspnea on exertion and Denies orthopnea Resp Denies cough, Denies dyspnea and Denies dyspnea on exertion GI Denies bloating and Denies change in bowel habits Musc Denies muscle weakness, Denies numbness and Denies tingling Neuro Denies dizziness, Denies frequent falls, Denies numbness, Denies tingling and Denies weakness Endo Denies fatigue and Denies palpitations Physical Exam Vital Signs: Last Vital Signs Pulse 87 10/08/25 14:36 BP 120/60 10/08/25 14:36 BMI result Body Mass Index 36.5 GENERAL APPEARANCE: in no acute distress, pleasant. NECK: no carotid bruit, no jugular venous distention. SKIN: no suspicious lesions, warm and dry. HEART: Systolic murmur aortic area with preserved 2nd heart sound., regular rate and rhythm. LUNGS: clear to auscultation bilaterally. ABDOMEN: soft, nontender. EXTREMITIES: no edema. PERIPHERAL PULSES: equal. NEUROLOGIC: No gross deficits, AAO X 3 Office Procedures EKG Details: Sinus rhythm 87 beats per minute, normal axis, can not rule out inferior infarct, nonspecific T-wave changes, voltage criteria for left ventricular hypertrophy, QTC 433 milliseconds. [id number], Complete Assessment & Plan Assessment & Plan (1) Aortic stenosis: Code(s): I35.0 - Nonrheumatic aortic (valve) stenosis Category: Medical Plan Pleasant 65-year-old gentleman from [place] with background history of diabetes, hypertension and moderate aortic valve stenosis by echocardiography. He currently is asymptomatic. We will repeat the echocardiogram next month which will be 1 year from the previous echocardiography. If he has severe aortic valve stenosis then he will need further workup including cardiac catheterization. Overall he appears to have moderate aortic valve stenosis at this point. I have explained to him and his daughter the common symptoms of aortic valve stenosis. Follow-up in 6 months. Thank you for allowing me to participate in the care of your patient. Please feel free to contact me if you have any questions. Orders: Orders CA echo transthoracic complete 1 Month I35.0 - Nonrheumatic aortic (valve) stenosis Coding Level of Care Code New Pt Level 4 (17919) Diagnoses Aortic stenosis I35.0 CPT Codes EKG - CPT: 16530-[id number], Complete ([id number])
[2025-10-08 14:36] VITALS: BP 120/60; PULSE 87; BMI 36.5
--- OUTSIDE RECORDS SUMMARY | 2025-10-08 16:51 | XMS_ITS | Encounter Summary ---
Author Organization [employer] [facility] Address [address] [place] [address] Care Team Providers Care Machine Gunner Name Role Phone Unavailable Primary Care Provider Unavailabl e Encounter Details Date Type Department Care Team (Late st Contact Info) Description 10/04/2025 Telephone [facility] ADULT DENTAL [address] [place] [address] Caroline Barth Social History Tobacco Use Types Packs/Day Years Used Date Smoking Tobacco: Never Smokeless Tobacco: Never Alcohol Use Standard Drinks/Week Comments Never 0 (1 standard drink = 0.6 oz pur e alcohol) Sex and Gender Information Value Date Recorded Sex Assigned at Male 11/15/2024 11:14 AM EST Legal Sex Male 11:09 AM EST Gender Identity Male 11/15/2024 11:14 AM EST Sexual Orientation Straight 11/15/2024 11 :14 AM EST documented as of this encounter Miscellaneous Notes * Telephone Encounter - Fredy Wheeler - 10/04/2025 1:42 PM EST Called patient to reschedule an appointment due to changes to provider schedule but there was no answer so I left a voicemail with the new date and explaining everything. documented in this encounter Plan of Treatment Upcoming Encounters Date Type Department Care Team (Late st Contact Info) Description 10/23/2025 8:45 AM EST Office Visit [facility] ADULT DENTAL [address] [place] [address] Caroline Barth documented as of this encounter Visit Diagnoses Not on filedocumented in this encounter
--- OUTSIDE RECORDS SUMMARY | 2025-10-08 16:51 | XMS_ITS | Clinical Summary ---
Author Organization [employer] Address [address] [place] [address] Care Team Providers Care Donation Worker Name Role Phone Unavailable Primary Care Provider [...] obesity (BMI 35.0-39.9) with comorbidity (CMS/HCC) 11/15/2024 Encounters Date Type Department Care Team Description 10/04/2025 Telephone [facility] ADULT DENTAL [address] [place] [address] Caroline Barth from Last 3 Months Social History Tobacco [...] Description 10/23/2025 8:45 AM EST Office Visit [facility] ADULT DENT[facility] [address] [place], [place] [id number] Caroline Barth Health Maintenance Due Date Last [...] years 1-dose series) 2021 COVID-19 Vaccine ( - season) 2025 12/10/2022, 05/06/2022, 10/21/2021, Additional history [...] Maintenance Insurance DENTAL - HSN [place] ([place]) [id number]
== END 2025-10-08 15:00 | disposition home or self-care (01) ==
LOC: HO.HCS 14:31
PROVIDERS: PCP Family Medicine; Visit Provider Internal Medicine Cardiovascular Disease
DX: I35.0 Nonrheumatic aortic (valve) stenosis (principal)
CPT/HCPCS: 93010; 99204

== ENCOUNTER → 2025-10-08 14:30 | Outpatient (BNVA) | payer OTHER, SELFPAY | PROVIDERS: PCP Family Medicine; Visit Provider Internal Medicine Cardiovascular Disease | DX: I35.0 Nonrheumatic aortic (valve) stenosis (principal) | CPT/HCPCS: 93005; 99202 ==

== ENCOUNTER → 2025-11-12 14:47 | Outpatient (REF) | payer SELFPAY ==
--- OUTSIDE RECORDS SUMMARY | 2025-11-12 21:16 | XMS_ITS | Clinical Summary ---
Author Organization [employer] Address [address] [facility] [place] [address] Care Team Providers Care Pharmacy Scheduler Name Role Phone Unavailable Primary Care Provider [...] Type Department Care Team Description 10/04/2025 Telephone [facility] ADULT DENTAL [address] [place] [address] Caroline Barth from Last 3 [...] Mass Index - - Plan of Treatment Health Maintenance Due Date Last Done Comments [...] Years (1 of 2 - PCV) 1980 RSV Patients and Patients Aged 60 years or older (1 - Risk 50-74 years 1-dose series) 2011 Zoster Vaccines (1 of 2) 2011 COVID-19 Vaccine ( - season) 2025 12/10/2022, [...]
--- OUTSIDE RECORDS SUMMARY | 2025-11-12 21:16 | XMS_ITS | Patient Health Record ---
Author Organization [facility] Address [address] [facility] [place] [place] [address] Care Team Providers Care Manager Loan Name Role Phone Dr. Vel Samuel Primary [...] Hyperglycemia due to type 2 diabetes mellitus (560973827629033) Type 2 diabetes mellitus with hyperglycemia (E11.65) Active confirmed Problem Essential hypertension (35681144) Essential (primary) hypertension (I10) Active confirmed Problem Bronchitis (56069920) Bronchitis (J40) Active confirmed Problem Lipid screening (622604882) Lipid screening (Z13.220) Active confirmed Problem Diabetes mellitus screening (182865604) Diabetes mellitus screening (Z13.1) Active confirmed Problem Sexually transmitted infectious disease (8864436) Encounter for screening for infections with predominantly sexual mode of transmission (Z11.3) Active confirmed Problem Colon cancer screening (020588362) Colon cancer screening (Z12.11) Active confirmed Problem Endocrine/metabol ic screening (694359690) Encounter for screening for endocrine disorder (Z13.29) Active confirmed Problem Screening for malignant neoplasm of prostate (062645838) Prostate cancer screening (Z12.5) Active confirmed Problem Physical examination, complete (09620893) Adult general medical examination (Z00.00) Active confirmed [...] Date Coverage End Date MCS [id number] Danilo Crowder, [place] [address] [id number] FENG CRISTINA Self - patient is the insured 6 Medical (General) History Medical History History ICD Code Hypertension
== END ==
LOC: HO.CARD 14:47
PROVIDERS: PCP Family Medicine; Visit Provider Family Medicine
DX: I35.0 Nonrheumatic aortic (valve) stenosis (principal)
CPT/HCPCS: 93306; Q9957

== ENCOUNTER → 2025-11-12 14:50 | Outpatient (BNV) | payer OTHER, SELFPAY | PROVIDERS: PCP Family Medicine; Visit Provider Internal Medicine Cardiovascular Disease | DX: I51.89 Other ill-defined heart diseases (principal); I35.0 Nonrheumatic aortic (valve) stenosis; I77.810 Thoracic aortic ectasia | CPT/HCPCS: 93306 ==